=== PATIENT | male | born 1945 | race Caucasian/White ===

== ENCOUNTER 2023-07-10 16:05 | Outpatient (RCR) | payer OTHER, SELFPAY | END 2023-07-13 08:59 | disposition home or self-care (01) | LOC: RPT 16:05 | PROVIDERS: ATTENDING PHYSICIAN Orthopaedic Surgery; FAMILY PHYSICIAN Family Medicine | DX: Z47.1 Aftercare following joint replacement surgery (principal); Z96.642 Presence of left artificial hip joint; Z73.6 Limitation of activities due to disability | CPT/HCPCS: 97110 ==

== ENCOUNTER → 2023-09-08 08:07 | Outpatient (REF) | payer OTHER, SELFPAY | LOC: RCS 08:07 | PROVIDERS: ATTENDING PHYSICIAN Internal Medicine Cardiovascular Disease; FAMILY PHYSICIAN Family Medicine | DX: I48.3 Typical atrial flutter (principal); I48.0 Paroxysmal atrial fibrillation | CPT/HCPCS: 93306 ==

== ENCOUNTER → 2023-09-12 07:49 | Outpatient (REF) | payer OTHER, SELFPAY | LOC: DHCBC/DCA 07:49 | PROVIDERS: ATTENDING PHYSICIAN Internal Medicine Cardiovascular Disease; FAMILY PHYSICIAN Family Medicine | DX: I48.0 Paroxysmal atrial fibrillation (principal); I25.10 Atherosclerotic heart disease of native coronary artery without angina pectoris | CPT/HCPCS: 78452; 93017; A9500; J2785 ==

== ENCOUNTER 2023-11-01 14:51 | Emergency (ER) | payer OTHER, SELFPAY ==
[2023-11-01 14:54] VITALS: BP 121/95; BMI 36.6
--- NOTE | 2023-11-01 16:59 | ED.GENMED ---
History of Present Illness
General
Chief Complaint: Abdominal Pain
Source: patient
Exam Limitations: none
Time Seen by Provider: 11/01/23 16:35
Nursing documentation reviewed up to this point in time: agreed with
Travel History
Have you had any contact with someone who has COVID-19?: No
Do you have any symptoms of coronavirus? Fever > 100 degrees, chills, cough, shortness of breath, sore throat, loss of taste or smell, muscle aches, or headache?: No
History of Present Illness
History of Present Illness:
Patient with history of atrial fibrillation on Eliquis, presents to ED for evaluation after his Apple Watch indicated that he was in atrial fibrillation rhythm, after having large bowel movement. Initially, patient reports having had lower
abdominal discomfort. Shortly afterwards, patient had urge to have bowel movement. He went to the restroom, where he had 'large bowel movement'. Afterwards, his abdominal pain started to dissipate. He checked his BS, as he felt mildly sweaty and
it was 80. Patient proceeded to drink a glass of lemonade, which improved his blood sugar. As he arrived to ED, his Apple Watch indicated that he was back in normal sinus rhythm. At the time of evaluation ED, patient has no complaints. Denies
abdominal pain. Denies dizziness. Denies chest pain. Denies chest palpitations. Denies nausea or vomiting. Denies recent illness.
Past History
Past History
ED Past Medical History: Arrthythmia (Atrial fibrillation), GERD, HTN, [place] and Other (IBS, sleep apnea, arthritis, cataracts)
ED Past Surgical History: Orthopedic and Other (Colostomy with reversal, hernia repair, cataract, cardiac stent)
Social History
Tobacco: Former smoker
Alcohol: None
Drug: None
Review of Systems
Review of Systems
Allergies reviewed?: Yes
All Other Systems: ROS reviewed and negative except as documented in HPI and ROS
Constitutional: Reports no symptoms
EENT: Reports no symptoms
Respiratory: Reports no symptoms
Cardiac: Reports no symptoms
ABD/GI: Reports abdominal pain
Musculoskeletal: Reports no symptoms
Skin: Reports no symptoms
Neurological: Reports no symptoms
Phy Exam
Physical Exam
Physical Exam:
Physical Exam
General: no apparent distress, not acutely ill. afebrile
Head: nc/at. eomi
Neck: supple. normal range of motion.
Heart: s1/s2 regular rate and rhythm, no murmur. equal radial pulses.
Lungs: no acute respiratory distress. clear bilaterally
Abdomen: normal bowel sounds. not tender.
Neuro: alert and oriented. no focal neurological deficits
Skin: no rash
Psychiatric: well kept. interactive and cooperative
Extremities: no edema. no calf tenderness.
Course
Orders/Labs/Results
Orders:
Orders
11/01/23 14:57
EKG [Electrocardiogram (*1)] Urgent
Reason for Study: Chest Pain
EKG- Treatment ONCE
Abnormal Lab Results
11/01/23
19:01
POC Glucose 171 H mg/dl
(70-99)
Vital Signs
Initial and Last Documented VS:
Initial Vital Signs
Temp Pulse Resp BP Pulse Ox
99.1 F 60 20 121/95 99
11/01/23 14:54 11/01/23 14:54 11/01/23 14:54 11/01/23 14:54 11/01/23 14:54
Last Documented Vital Signs
Temp Pulse Resp BP Pulse Ox
99.1 F 60 20 121/95 99
11/01/23 14:54 11/01/23 14:54 11/01/23 14:54 11/01/23 14:54 11/01/23 14:54
MDM/Problems Addressed
MDM/Problems Addressed:
Patient remains asymptomatic during prolonged course of observation ED. Repeat abdominal exam: Soft and nontender. On the monitor, patient remains in sinus rhythm. Patient will be discharged in stable condition, to the care of his family, with
recommendation to notify his piping blocker regarding transient episode of A-fib, spontaneous resolved.
*Critical Care Note
Total Time (30-74mins, 75-104mins- exclusive of procedures): Not Applicable
ED Attending Note
-
Portions of this chart may have been created with voice recognition software.� Occasional wrong word or��sound alike� substitutions may have occurred due to the inherent limitations of voice recognition software.
Discharge Plan
Departure
Patient Disposition: Home (Routine Discharge)
Date of Disposition: 11/01/23
Time of Disposition: 19:01
Patient with high blood pressure during this ER visit?: Yes
Condition: Good
Discharge Problem:
Atrial fibrillation
Instructions: Atrial Fibrillation (DC)
Prescriptions:
No Action
sotalol 80 MG tablet
80 mg PO DAILY
atorvastatin 20 MG tablet
20 mg PO DAILY
metoprolol succinate 25 MG tablet extended release 24 hr
12.5 mg PO DAILY
Patient Comments:
pt takes 1/2 tablet
insulin aspart U-100 [Novolog FlexPen U-100 Insulin] 300 UNITS/3 ML insulin pen
15 units SC .SLIDING SCALE
Metamucil Fiber Singles 1 PACKET powder in packet
1 packet PO DAILY
testosterone cypionate 200 MG/ML oil
200 mg IM MONTHLY
Rx Instructions:
Next dose 04/26/2023
Eliquis 5 mg Tablet
5 mg PO BID
Hold Instructions: Resume on 05/12/23.
insulin detemir U-100 100 unit/mL (3 mL) Insulin Pen
30 unit SC HS
mupirocin 2 % ointment
1 applic intranasal BID Qty: 1 0RF
Patient Comments:
started treatment Sunday05/07/23 and was taking BID and last took at home 05/09/23 in am
docusate sodium 100 mg Capsule
100 mg PO BID Qty: 30 0RF
Eliquis 2.5 mg Tablet
2.5 mg PO BID Qty: 3 0RF
Rx Instructions:
Cut 5 mg tab in 08/07 (= 2.5 mg) and start 10/5 PM. Take twice a day until 10/6 PM.
DO NOT RESUME ELIQUIS 5 MG TWICE A DAY UNTIL 10/7 AM.
lidocaine 4 % Adhesive Patch,Medicated
2 patch topical DAILY Qty: 30 0RF
Rx Instructions:
Over the counter. 12 hours on, 12 hours off.
Apply to sides of left hip/thigh.
pantoprazole 40 mg Tablet,Delayed Release (Dr/Ec)
40 mg PO DAILY Qty: 30 0RF
Rx Instructions:
Take daily while on post-surgical pain meds to prevent GI upset.
oxycodone 5 mg Tablet
5 - 10 mg PO Q4HPRN PRN (Reason: moderate-severe pain) Qty: 30 0RF
Rx Instructions:
1 tab for moderate pain, 2 if severe.
Dx total joint.
sennosides [Senna Laxative] 8.6 mg Tablet
17.2 mg PO BID Qty: 30 0RF
prochlorperazine maleate [Compazine] 5 mg tablet
5 mg PO TID PRN (Reason: nausea and vomiting) Qty: 20 0RF
furosemide 40 MG tablet
40 mg PO Q48H Qty: 0 0RF
Rx Instructions:
HOLD if systolic blood pressure <130 while on Oxycodone
amlodipine 10 MG tablet
10 mg PO DAILY Qty: 0 0RF
Rx Instructions:
HOLD if systolic blood pressure <130 while on Oxycodone
losartan [Cozaar] 100 MG tablet
100 mg PO DAILY Qty: 0 0RF
Rx Instructions:
HOLD if systolic blood pressure <130 while on Oxycodone.
acetaminophen 500 mg Capsule
1,000 mg PO Q6H Qty: 60 0RF
Rx Instructions:
DO NOT exceed >4000 mg daily.
cefadroxil 500 mg capsule
500 mg PO DAILY Qty: 7 0RF
Rx Instructions:
Start day after discharge and continue daily until finished.
Take with probiotic.
tamsulosin [Flomax] 0.4 mg capsule
0.4 mg PO DAILY Qty: 7 0RF
Rx Instructions:
Take daily for 1 week for urinary retention prevention.
HOLD if systolic blood pressure <100.
Referrals:
Frankie Caldwell MD [Family Provider] -
Activity Restrictions/Additional Instructions:
As discussed, please follow-up with your primary care physician and/or piping blocker with any further concerns.
Interventions
Interventions:
*Risk Screen - Suicide Last Done: 11/01/23 14:54
*Neglect/Abuse Screening Last Done: 11/01/23 14:54
ED- Fall Risk Assessment Last Done: 11/01/23 18:06
*ED COVID-19 Vaccine History Last Done: 11/01/23 14:54
*Nursing Disposition Last Done: 11/01/23 19:17
BJ-Dwomri-Tzotvhulee Assessment Last Done: 11/01/23 18:06
Discharge Date and Time
Discharge Date/Time: 11/01/23 19:18
Print Language: CUBAN
[2023-11-01 19:03] LABS: Glucose - Point of Care 171 mg/dl (70-99)
== END 2023-11-01 19:18 | disposition home or self-care (01) ==
LOC: EMR 14:51
PROVIDERS: EMERGENCY PHYSICIAN Emergency Medicine; FAMILY PHYSICIAN Family Medicine
DX: I48.91 Unspecified atrial fibrillation (principal); I10 Essential (primary) hypertension; Z79.01 Long term (current) use of anticoagulants; Z87.891 Personal history of nicotine dependence
CPT/HCPCS: 99283; 82962; 93005

== ENCOUNTER 2023-11-07 15:15 | Inpatient (IN) | payer OTHER, SELFPAY ==
[2023-11-07] VITALS (17 sets, daily range): BP systolic 106–141; BP diastolic 52–95; BMI 34.8
[2023-11-07 05:50] LABS: % Basophils 0.2 % (0-2); % Eosinophils 0.1 % (0-6); % Immature Granulocytes 0.6 % (0-0.5); % Lymphocytes 5.2 % (20.5-51.1); % Monocytes 10.9 % (1.7-9.3); Absolute Immature Granulocytes 0.1 10^3/uL (0-0.05); Absolute Lymphocytes 1.1 10^3/uL (1.2-3.4); Absolute Monocytes 2.3 10^3/uL (0.1-0.6); Absolute Neutrophils 17.7 10^3/uL (1.4-6.5); Hematocrit 40.8 % (39.0-52.0); Hemoglobin 14.5 g/dL (13.0-18.0); Mean Corp Hgb Conc. 35.5 g/dL (33.0-37.0); Mean Corpuscular Volume 101.2 fL (80.0-94.0); Mean Platelet Volume 9.8 fL (7.4-10.4); Nucleated Red Blood Cells % 0 % (-); Platelet Count 255 10^3/uL (130-400); Red Blood Cell Count 4.03 10^6/uL (4.70-6.10); Red Cell Dist. Width 12.2 % (11.5-14.5); White Blood Cell Count 21.3 10^3/uL (4.8-10.8)
[2023-11-07 06:04] LABS: ALT (SGPT) 327 U/L (0-50); AST (SGOT) 133 U/L (17-59); Albumin 3.8 g/dl (3.5-5.0); Alkaline Phosphatase 354 U/L (38-126); Blood Urea Nitrogen 27 mg/dl (9-20); Calcium 9.5 mg/dl (8.4-10.2); Carbon Dioxide 15 mmol/L (22-30); Chloride 108 mmol/L (98-107); Estimated Creatinine Clearance 54 ml/min; Glucose 204 mg/dl (70-99); Potassium 3.7 mmol/L (3.5-5.1); Sodium 135 mmol/L (135-145); Total Bilirubin 2.2 mg/dl (0.2-1.3); Total Protein 7.2 g/dl (6.3-8.2); eGFR 51.45
--- NOTE | 2023-11-07 06:12 | ED.GENMED ---
History of Present Illness
General
Chief Complaint: Abdominal Symptoms
Source: patient
Exam Limitations: none
Time Seen by Provider: 11/07/23 06:02
Travel History
Have you had any contact with someone who has COVID-19?: No
Do you have any symptoms of coronavirus? Fever > 100 degrees, chills, cough, shortness of breath, sore throat, loss of taste or smell, muscle aches, or headache?: No
History of Present Illness
History of Present Illness:
See MDM
Past History
Past History
ED Past Medical History: Arrthythmia (Atrial fibrillation), GERD, HTN, [place] and Other (IBS, sleep apnea, arthritis, cataracts)
ED Past Surgical History: Orthopedic and Other (Colostomy with reversal, hernia repair, cataract, cardiac stent)
Social History
Tobacco: Former smoker
Alcohol: None
Drug: None
Phy Exam
Physical Exam
Physical Exam:
See MDM
Course
Orders/Labs/Results
Orders:
Orders
11/07/23 05:27
Electrocardiogram (*1) Urgent
Reason for Study: Atrial Fibrillation
EKG- Treatment ONCE
11/07/23 05:42
CMP [Comprehensive Metabolic Panel] Urgent
Complete Blood Count/With Diff Urgent
Lipase Urgent
Comment: ADD ON
11/07/23 06:10
Add On- LAB Urgent
Tests Added?: lipase
11/07/23 06:11
CT Abd/pel W Iv And Oral Contr Urgent
Comment:
Reason For Exam: mid abd pain
Iohexol [Omnipaque] See Protocol PO NOW STA
Morphine Sulfate 4 mg IV NOW STA
Ondansetron Injectable [Zofran] 4 mg IV NOW STA
11/07/23 10:17
Morphine Sulfate 4 mg IV NOW STA
11/07/23 11:14
0.9% Sodium Chloride 1000 ml [Nss] 1,000 ml IV BOLUS
Abnormal Lab Results
11/07/23
05:42
WBC 21.3 H 10^3/uL
(4.8-10.8)
RBC 4.03 L 10^6/uL
(4.70-6.10)
MCV 101.2 H fL
(80.0-94.0)
MCH 36.0 H pg
(27.0-31.0)
Abs Immat Gran (auto) 0.1 H 10^3/uL
(0-0.05)
Absolute Neuts (auto) 17.7 H 10^3/uL
(1.4-6.5)
Absolute Lymphs (auto) 1.1 L 10^3/uL
(1.2-3.4)
Absolute Monos (auto) 2.3 H 10^3/uL
(0.1-0.6)
Immature Gran % 0.6 H %
(0-0.5)
Neutrophils % 83.0 H %
(42.2-75.2)
Lymphocytes % 5.2 L %
(20.5-51.1)
Monocytes % 10.9 H %
(1.7-9.3)
Chloride 108 H mmol/L
(98-107)
Carbon Dioxide 15 L mmol/L
(22-30)
BUN 27 H mg/dl
(9-20)
Creatinine 1.4 H mg/dL
(0.7-1.3)
Glucose 204 H mg/dl
(70-99)
Total Bilirubin 2.2 H mg/dl
(0.2-1.3)
AST 133 H U/L
(17-59)
ALT 327 H U/L
(0-50)
Alkaline Phosphatase 354 H U/L
(38-126)
Lipase > 4000 H* U/L
(23-300)
11/07/23 05:42
11/07/23 05:42
Vital Signs
Initial and Last Documented VS:
Initial Vital Signs
Temp Pulse Resp BP Pulse Ox
98 F 134 26 118/52 98
11/07/23 05:17 11/07/23 05:17 11/07/23 05:17 11/07/23 05:17 11/07/23 05:17
Last Documented Vital Signs
Temp Pulse Resp BP Pulse Ox
98 F 128 18 141/70 94
11/07/23 05:17 11/07/23 12:30 11/07/23 12:30 11/07/23 12:13 11/07/23 12:30
MDM/Problems Addressed
Differential Diagnosis Includes:
HPI and MDM Narrative:
78-year-old male presenting with generalized abdominal pain and diarrhea. Symptoms have been ongoing since . Since then, patient has been in and out of A-fib/a flutter. Symptoms are worse when he eats but tend to be generalized
regardless. Patient is worried because he has a history of bowel perforation. He denies sick contacts or fevers.
On exam, he does have what appears to be a distended abdomen but states this is somewhat normal for him. On the cafeteria monitor, he appears to be going in between A-fib and normal sinus rhythm. He was initially complaining of shortness of breath
but states that has been resolving.
Given his history, will obtain CT scan of his abdomen/pelvis
Physical exam
General: Laying in bed comfortably
HEENT: protecting airway
Neck: appears supple
CV: No evidence of cyanosis. Irregular rhythm, regular rate
Resp: No accessory muscle use
Abd: Appears distended. Mild tenderness throughout. No rebound
Extremities: No deformities. No leg edema
Neuro: alert
Psych: Normal affect
Skin: Intact
Problems Addressed including Acute and Chronic Conditions affecting care:
1. Paroxysmal A-fib
Acuity: acute
Prognosis: stable
Details: We discussed that he is a poor candidate for cardioversion given that he continues to go in and out.
2. Abdominal pain
Acuity: acute
Prognosis: stable
Details: Given his exam and history, will obtain CT abdomen/pelvis
Updates
7:30 AM I updated patient on elevated LFTs and elevated lipase. He states he is feeling better after the morphine. CT scan still pending
11:[address] shows gallstones but no evidence of acute cholecystitis. CT shows evidence of pancreatitis. Will continue IV fluids and admit
Differential Diagnosis (but not limited to): Colitis, cholecystitis, diverticulitis
Testing considered: Chest x-ray but shortness of breath is resolving
Drug therapy (if applicable): OTC meds, please see d/c instruction regarding Rx drugs
Amount and/or Complexity of Data Reviewed
Clinical info obtained from: Patient
External data reviewed: N/A
Labs I independently reviewed (but not limited to): Leukocytosis, elevated lipase
Radiology: The CT scan was personally and independently reviewed. In addition, official CT report reviewed.
Pulse Ox: not hypoxic
EKG independently reviewed: A flutter, normal axis, no STEMI
Baby Attendant: Intermittently going between A-fib and normal sinus rhythm
Critical Care: N/A
Risk of Complication:
Social Determinants of health: Good social support
Discussed with other providers: Hospitalist
Escalation of Care includes Admit/Obs: Given the pain and pancreatitis, will admit
Occasional wrong word or 'sound a like' substitutions may have occurred due to the inherent limitations of voice recognition software. Read the chart carefully and recognize, using context, where substitutions have occurred.
*Critical Care Note
Total Time (30-74mins, 75-104mins- exclusive of procedures): Not Applicable
ED Attending Note
-
Portions of this chart may have been created with voice recognition software.� Occasional wrong word or��sound alike� substitutions may have occurred due to the inherent limitations of voice recognition software.
Discharge Plan
Departure
Patient Disposition: Admit
Date of Disposition: 11/07/23
Time of Disposition: 11:17
Admit to: Med/Surg
Presentation/result/management discussed w/ accepting MD/DO: Hospitalist
Discharge Problem:
Acute pancreatitis
Prescriptions:
No Action
sotalol 80 MG tablet
80 mg PO QPM
atorvastatin 20 MG tablet
20 mg PO DAILY
metoprolol succinate 25 MG tablet extended release 24 hr
12.5 mg PO DAILY
Patient Comments:
pt takes 1/2 tablet
insulin aspart U-100 [Novolog FlexPen U-100 Insulin] 300 UNITS/3 ML insulin pen
12 - 16 units SC AC
Metamucil Fiber Singles 1 PACKET powder in packet
1 packet PO DAILY
amlodipine 10 MG tablet
10 mg PO DAILY Qty: 0 0RF
losartan [Cozaar] 100 MG tablet
100 mg PO DAILY Qty: 0 0RF
[place] Nasal Mist 0.65 % Aerosol,[place]
1 spray INTRANASAL HS
insulin glargine [Lantus Solostar U-100 Insulin] 100 unit/mL (3 mL) insulin pen
38 - 43 unit SC HS
Eliquis 5 mg tablet
5 mg PO BID
furosemide 40 MG tablet
40 mg PO DAILY
acetaminophen 500 mg capsule
1,000 mg PO HS
Rx Instructions:
DO NOT exceed >4000 mg daily.
docusate sodium 100 mg capsule
100 mg PO BID
Referrals:
Frankie Caldwell MD [Family Provider] -
Interventions
Interventions:
*Risk Screen - Suicide Last Done: 11/07/23 05:17
*General Assessment Last Done: 11/07/23 05:47
*Neglect/Abuse Screening Last Done: 11/07/23 05:17
ED- Fall Risk Assessment Last Done: 11/07/23 06:00
*ED COVID-19 Vaccine History Last Done: 11/07/23 05:40
YL-Dddyel-Sjhvquljml Assessment Last Done: 11/07/23 06:00
Discharge Date and Time
Print Language: CITIZEN OF [place]
[2023-11-07] MEDS: MORPHINE SULFATE 4 MG IV ×2 (07:14→10:39)
[2023-11-07] MEDS: ZOFRAN 4 MG IV (07:16)
[2023-11-07] MEDS: OMNIPAQUE 50 ML PO (07:17)
[2023-11-07 07:32] LABS: Lipase > 4000 U/L (23-300)
[2023-11-07] MEDS: NSS 1000 IV ×2 (11:20→15:55)
--- NOTE | 2023-11-07 15:20 | W.PN.HOSP.TC ---
Addendum entered and electronically signed by Zack Marcos MD 11/07/23 15:40:
will order short course of abx until eval by GI
Original Note:
Today's Communication/Plan
-
IVF
narcotic analgesic
Discussed with Dr. Sandhu, for now she prefers no abx
Assessment / Plan
Assessment / Plan
acute pancreatitis
onset of symptoms 10/31, pain was sharp at that time, had large BM and pain resolved. Recurred on 11/04. Had poor appetite on 11/01 and 11/02, but ate more for Easter on 11/03. this time pain did not resolve, but was variable in intensity.
Lipase >4000. ?biliary colic vs Etoh related
IDDM
pt will be on clear liquid only, thus will decrease Lantus dosing and use SSI coverage. Check a1c
Paroxysmal A. Fib
continue Eliquis for now
Etoh
pt drinks 1-2 nayeli's per day ~3x per week
P:IVF
GI consult
clear liquids only
see dictated note
Full Code
Anticipated Discharge: > 48 hours
Subjective/Interval History
-
Date of Service: November 07, 2023
Abdominal Pain, onset 10/31
Objective Data
-
Labs:
Laboratory Results
11/07/23
05:42
WBC 21.3 H
Hgb 14.5
Hct 40.8
Plt Count 255
Sodium 135
Potassium 3.7
Chloride 108 H
Carbon Dioxide 15 L
BUN 27 H
Creatinine 1.4 H
Glucose 204 H
Calcium 9.5
Total Bilirubin 2.2 H
AST 133 H
ALT 327 H
Alkaline Phosphatase 354 H
Vital Signs:
Vital Signs
Temp Pulse Resp BP Pulse Ox
98 F 112 31 126/63 95
11/07/23 05:17 11/07/23 14:30 11/07/23 14:30 11/07/23 14:00 11/07/23 14:30
Review of Systems
-
History Source: Patient and Family ( and dgt)
Constitutional: Denies Fever
EENT: Reports No Symptoms Reported
Respiratory: Reports No Symptoms and Trouble Breathing (was sob day of onset, none currently)
Cardiac: Reports No Symptoms; Denies Chest Pain
Abdomen/GI: Reports Abdominal Pain
Genitourinary: Reports No Symptoms
Physical Exam
-
General: Well Developed, Well Nourished, No Apparent Distress and Obese
HEENT: Normocephalic, Atraumatic and Moist Mucous Membranes
Respiratory: Clear to Auscultation (on shallow respirations); Negative Wheezes, Rales or Rhonchi
Cardiac: S1/S2 and Irregular Rhythm
GI: Soft, Normal Bowel Sounds, Tender and Distended
Musculoskeletal: No Clubbing, No Cyanosis and Other (bilateral chronic stasis changes)
Neuro: Awake, Alert and Oriented
[2023-11-07] MEDS: MORPHINE SULFATE 2 MG IV (15:50)
--- NOTE | 2023-11-07 15:51 | CON.GI ---
Addendum entered and electronically signed by Eleuterio Sandhu MD 11/07/23 18:23:
I saw and examined the patient.
The E M ASSEMBLER or PA's note was reviewed and I agree with the note.
Comment:78-year-old male past medical history of A-fib on Eliquis, ulcerative colitis with resection currently off medications, other medical history as below here with abdominal pain found to have leukocytosis, elevated lipase, elevated LFTs. CT
significant for pancreatitis and gallstones. Does drink double nayeli 2-3 times a week. Typically does not have abdominal pain. Suspect gallstone pancreatitis. Less likely due to alcohol based on LFT ratio as ALT is greater than AST. With T.
bili elevated, will get MRI/MRCP for CBD stone. Recommend n.p.o., IV fluids. Does have leukocytosis but this may be related to pancreatitis rather than infection. Will hold on antibiotics. Consider cardiology consult and surgical eval in the
morning for potential cholecystectomy either on this admission or outpatient given likely gallstone pancreatitis. Discussed with Dr. Marcos.
Original Note:
Consultation
-
Date/Time Consultation Requested: 11/07/23 1522
Date/Time Consultation Performed: 11/07/23 1450
Requesting Provider: Zack Marcos MD
Performing Provider: TARAS Del Toro, Raquel Sandhu MD
Reason for Consultation: pancreatitis
Medical History
Chief Complaint / HPI
Chief Complaint: abdominal pain
History of Present Illness:
Pt is a 78yo with hx afib on Elquis, ulcerative colitis with distant hx Asacol use then bowel perforation with resection currently off medications, TA polyps, GERD, obesity, HTN, hypercholesterolemia, NIDDM with admission to ER 10/31 with abdominal
pain and elevated heart rate. In ER symptoms improved and patient was discharged. During evaluation WBC was normal, creat 1.4, alk phos 153 with otherwise normal LFT's. Pt now returns with recurrent pain still presents when seen in ER with rise
in WBC to 21,300, with hbg 14.5 with macrocytosis, bili 2.2, d tony 1.6, AST 133, alt 327, alk phos 354 and lipase >4000. CT with IV and oral contrast with inflammatory stranding in head and neck of pancreas with concern for pancreatitis, there is
also mild bowel wall thickening in adjacent distended duodenum, cholelithasis, renal atrophy, diastasis of abdominal wall with large abdominal wall pannus and b/l THR.
At this time patient admits to recent nausea and vomiting prior to admission and some dark stools. He admits to some chronic constipation. He otherwise denies wt loss, fever, chills, jaundice, diarrhea or rectal bleeding. + ETOH 2-3 double
nayeli weekly, no new medications, no hx prior pancreatitis.
Past Medical History
Past Medical History: Arrhythmias (afib on Eliquis), GERD, HTN, Hypercholesterolemia, NIDDM and Other (ulcerative colitis, metabolic acidosis with metformin use, LE edema, sleep apnea, obesity, cataracts)
Past Surgical History: Bowel Resection (bowel perforation-with sigmoid resection colostomy with reversal path with active chronic non specific colitis, hernia repair, cataracts ), Cardiac (stent) and Orthopedic (b/l THR)
Social History
Tobacco: Former Smoker
Alcohol: Occasional (1 double nayeli 2-3 times per week)
Drug: None
Personal:
Living: With Family
Family History
Family History: Other (no family hx GI cancer, pancreatitis issues )
Allergies / Home Medications
Allergy/AdvReac Type Severity Reaction Status Date / Time
metformin Allergy Unknown Verified 11/07/23 05:22
rosiglitazone maleate Allergy Unknown Verified 11/07/23 05:22
[From Avandia]
ezetimibe [From Zetia] AdvReac MYALGIAS Verified 11/07/23 05:22
lisinopril [Lisinopril] AdvReac COUGH Verified 11/07/23 05:22
simvastatin [From Zocor] AdvReac MYALGIAS Verified 11/07/23 05:22
�Medication �Instructions �Recorded
sotalol 80 mg tablet 80 mg PO QPM Arrhythmia 07/14/09
atorvastatin 20 mg tablet 20 mg PO DAILY High Cholesterol 01/10/17
insulin aspart U-100 100 unit/mL 12 - 16 units SC AC Diabetes 01/10/17
(3 mL) subcutaneous pen (Novolog
FlexPen U-100 Insulin aspart)
metoprolol succinate 25 mg 12.5 mg PO DAILY Blood Pressure 01/10/17
tablet,extended release 24 hr
psyllium husk (aspartame) 3.4 gram 1 packet PO DAILY Constipation 01/10/17
oral powder packet (Metamucil
Fiber Singles)
amlodipine 10 mg tablet 10 mg PO DAILY Blood Pressure #0 05/10/23
tabs
losartan 100 mg tablet (Cozaar) 100 mg PO DAILY Blood Pressure #0 05/10/23
tabs
acetaminophen 500 mg capsule 1,000 mg PO HS Pain 11/07/23
apixaban 5 mg tablet (Eliquis) 5 mg PO BID Blood Clot 11/07/23
Prevention/Tx
docusate sodium 100 mg capsule 100 mg PO BID Constipation 11/07/23
furosemide 40 mg tablet 40 mg PO DAILY Fluid 11/07/23
Retention/Swelling
insulin glargine 100 unit/mL (3 38 - 43 unit SC HS Diabetes 11/07/23
mL) subcutaneous pen (Lantus
Solostar U-100 Insulin)
sodium chloride 0.65 % nasal spray 1 spray intranasal HS dryness 11/07/23
aerosol
Review of Systems
-
History Source: Patient and Family
Constitutional: Reports No Symptoms
EENT: Reports No Symptoms
Respiratory: Reports No Symptoms
Cardiac: Reports Palpitations
Abdomen/GI: Reports Abdominal Pain, Nausea, Vomiting and Constipated
: Reports No Symptoms
Musculoskeletal: Reports No Symptoms
Skin: Reports No Symptoms
Neurological: Reports Weakness
Endocrine: Reports No Symptoms
Hematologic/Lymphatic: Reports No Symptoms
Vital Signs
Temp Pulse Resp BP Pulse Ox
98 F 112 31 126/63 95
11/07/23 05:17 11/07/23 14:30 11/07/23 14:30 11/07/23 14:00 11/07/23 14:30
Physical Exam
Exam
General: Other (elderly male with some distress with pain in exam)
HEENT: Normocephalic and Anicteric
Respiratory: Other (decreased )
Cardiac: Irregular Rhythm (tachy)
GI: Soft, Tender (diffuse worse right sided, large abdomen ) and Other (diastasis )
Musculoskeletal: No Clubbing and No Cyanosis
Skin: Warm and Dry
Neuro: Awake, Alert and AO x 3
Psych: Calm
Results
WBC 21.3 10^3/uL (4.8-10.8) H 11/07/23 05:42
Hgb 14.5 g/dL (13.0-18.0) 11/07/23 05:42
Hct 40.8 % (39.0-52.0) 11/07/23 05:42
MCV 101.2 fL (80.0-94.0) H 11/07/23 05:42
Plt Count 255 10^3/uL (130-400) 11/07/23 05:42
Absolute Neuts (auto) 17.7 10^3/uL (1.4-6.5) H 11/07/23 05:42
Sodium 135 mmol/L (135-145) 11/07/23 05:42
Potassium 3.7 mmol/L (3.5-5.1) 11/07/23 05:42
Chloride 108 mmol/L (98-107) H 11/07/23 05:42
Carbon Dioxide 15 mmol/L (22-30) L 11/07/23 05:42
BUN 27 mg/dl (9-20) H 11/07/23 05:42
Creatinine 1.4 mg/dL (0.7-1.3) H 11/07/23 05:42
Calcium 9.5 mg/dl (8.4-10.2) 11/07/23 05:42
Total Bilirubin 2.2 mg/dl (0.2-1.3) H 11/07/23 05:42
AST 133 U/L (17-59) H 11/07/23 05:42
ALT 327 U/L (0-50) H 11/07/23 05:42
Alkaline Phosphatase 354 U/L (38-126) H 11/07/23 05:42
Lipase > 4000 U/L (23-300) H* 11/07/23 05:42
Diagnostic Image Results:
11/07/23 CT Abd/pel W Iv And Oral Contr
1).There is mild groundglass inflammatory stranding at the head and neck of the pancreas suggesting pancreatitis
2). There is mild bowel wall thickening in the adjacent distended third portion of the duodenum likely reflecting contiguous inflammatory change.
3). There is cholelithiasis
4). There is mild bilateral renal cortical atrophy
5).There is diastases of the anterior abdominal wall musculature with large anterior abdominal wall pannus
6). There are bilateral hip replacements
Prior GI Procedures:
EGD: none
Colonoscopy: 2019 -8 mm polyp TC random bx-- + cologuard, hx UC with surgical resection bx adenomatous changes of polyp, quiescent colitis neg dysplasia
Assessment / Plan
-
Pt is a 78yo with hx afib on Eliquis, ulcerative colitis with distant hx Asacol use then bowel perforation with resection currently off medications, TA polyps, GERD, obesity, HTN, hypercholesterolemia, NIDDM with admission to ER 10/31 with abdominal
pain and elevated heart rate. In ER symptoms improved and patient was discharged. During evaluation WBC was normal, creat 1.4, alk phos 153 with otherwise normal LFT's. Pt now returns with recurrent pain still presents when seen in ER with rise
in WBC to 21,300, with hbg 14.5 with macrocytosis, bili 2.2, d tony 1.6, AST 133, alt 327, alk phos 354 and lipase >4000. CT with IV and oral contrast with inflammatory stranding in head and neck of pancreas with concern for pancreatitis, there is
also mild bowel wall thickening in adjacent distended duodenum, cholelithiasis, renal atrophy, diastasis of abdominal wall with large abdominal wall pannus and b/l THR.
-pancreatitis
-leukocytosis
-PAF on Eliquis
-ETOH use
-macrocytosis
-cholelithiasis
-hx ulcerative colitis with prior sigmoid resection 1993 resection
-constipation
other medical problems:
-IDDM
-TA polyps
-GERD
-CKD
PLAN:
etiology of symptoms with concern for pancreatitis related to gallstone pancreatitis, ETOH use vs other
plan for MRI/MRCP to eval for CBD stone
pain control
trend LFT's
NPO
aggressive IVF as tolerated -s/p 1 liter bolus in ER will change in LR at 150ml//hr
add baseline CRP
t/c cardiology and surgical eval in Am for viola
ETOH abstinence
-
-
Thank you for consultation and allowing me to participate in the patient's care. Please call the stream control officer GI physician during the after hours with any questions or concerns.
[2023-11-07] MEDS: PROTONIX IV 40 MG IV (15:58)
[2023-11-07] MEDS: NSS (PRESERVATIVE FREE) 10 ML IV (15:58)
[2023-11-07 15:59] LABS: Direct Bilirubin 1.6 mg/dl (0.0-0.4)
[2023-11-07] MEDS: ZOSYN 50 IV (16:03)
[2023-11-07 16:33] LABS: Glucose - Point of Care 188 mg/dl (70-99)
[2023-11-07] MEDS: NOVOLOG FLEXPEN-MODERATE RESISTANCE 1 UNITS SC (16:34)
[2023-11-07] MEDS: LR 1000 IV ×2 (16:38→22:55)
[2023-11-07] MEDS: BETAPACE 80 MG PO (18:19)
--- NOTE | 2023-11-07 18:23 | W.PN.UPDATE ---
Update Note
Progress Note Update
billing purposes
[2023-11-07 18:26] LABS: Urine Albumin 1+ (Neg - Trace); Urine Bilirubin 1+ (Negative); Urine Character Clear (Clear); Urine Color Yellow; Urine Glucose 1+ (Negative); Urine Ketone 1+ (Negative); Urine Leukocyte Negative (Negative); Urine Nitrite Negative (Negative); Urine Occult Blood 1+ (Negative); Urine Specific Gravity 1.015 (<1.030); Urine Urobilinogen Negative (Neg - 1+)
[2023-11-07 18:35] LABS: Urine Squamous Cell 0-2 /LPF (Few)
[2023-11-07 18:36] LABS: Urine Bacteria Many (Negative); Urine Red Blood Cell 0-2 /HPF (0-2); Urine White Cell 0-2 /HPF (0-5)
[2023-11-08] MEDS: LANTUS 0.200000000000000011 UNITS SC ×2 (00:36→22:00)
[2023-11-08] MEDS: ZOSYN 50 IV ×4 (00:42→18:58)
[2023-11-08 00:43] LABS: Glucose - Point of Care 228 mg/dl (70-99)
[2023-11-08] MEDS: OCEAN, SALINE MIST 50 SPRAYS NASAL (00:43)
[2023-11-08] MEDS: COLACE 100 MG PO ×3 (00:43→19:30)
[2023-11-08] MEDS: ELIQUIS 5 MG PO ×3 (00:43→19:30)
[2023-11-08] MEDS: MORPHINE SULFATE 2 MG IV ×3 (00:51→18:56)
[2023-11-08 06:46] LABS: Hematocrit 34.8 % (39.0-52.0); Hemoglobin 12.5 g/dL (13.0-18.0); Mean Corp Hgb Conc. 35.9 g/dL (33.0-37.0); Mean Corpuscular Hgb 36.5 pg (27.0-31.0); Mean Corpuscular Volume 101.8 fL (80.0-94.0); Mean Platelet Volume 10.1 fL (7.4-10.4); Platelet Count 202 10^3/uL (130-400); Red Blood Cell Count 3.42 10^6/uL (4.70-6.10); Red Cell Dist. Width 12.5 % (11.5-14.5); White Blood Cell Count 17.6 10^3/uL (4.8-10.8)
[2023-11-08 07:18] LABS: ALT (SGPT) 197 U/L (0-50); AST (SGOT) 59 U/L (17-59); Albumin 2.9 g/dl (3.5-5.0); Alkaline Phosphatase 215 U/L (38-126); Blood Urea Nitrogen 34 mg/dl (9-20); Carbon Dioxide 15 mmol/L (22-30); Chloride 107 mmol/L (98-107); Estimated Creatinine Clearance 44 ml/min; Glucose 207 mg/dl (70-99); Lipase 895 U/L (23-300); Sodium 131 mmol/L (135-145); Total Bilirubin 1.7 mg/dl (0.2-1.3); eGFR 40.75
[2023-11-08 08:24] LABS: Glucose - Point of Care 198 mg/dl (70-99)
--- NOTE | 2023-11-08 08:39 | W.PN.HOSP.TC ---
Today's Communication/Plan
-
MRI/MRCP
resume IVF
follow labs
reviewed with RN
Assessment / Plan
Assessment / Plan
acute pancreatitis
onset of symptoms 10/31, pain was sharp at that time, had large BM and pain resolved. Recurred on 11/04. Had poor appetite on 11/01 and 11/02, but ate more for Easter on 11/03. this time pain did not resolve, but was variable in intensity.
Lipase >4000. ?biliary colic vs Etoh related, MRI ordered, pending
Spoke to GI regarding abx, originally was not going to order, but with significant leukocytosis decided to order pending further work up of source of pancreatitis
WBC 21.3-->17.6
Lipase 4000-->895
AST 133-->59
ALT 327-->197
Laboratory findings are more consistent with CBD stone (potentially passed) than Etoh induced pancreatitis, await results of MRI
IDDM
pt will be on clear liquid only, thus will decrease Lantus dosing and use SSI coverage. Check a1c
glu 188-228. Continue on reduced dose insulin to avoid hypoglycemia with decreased oral intake
Rising BUN/Creat
27/1.4-->34/1.7
Will resume IVF
Paroxysmal A. Fib
continue Eliquis for now
Etoh
pt drinks 1-2 nayeli's per day ~3x per week
P:IVF (nursing reports had been stopped, after the bolus and then second liter which was LR, will resume and follow renal studies)
GI consult
clear liquids only
see dictated note
Full Code
Anticipated Discharge: > 48 hours
Subjective/Interval History
-
Date of Service: November 08, 2023
Pain has decreased somewhat, not fully resolved. Had BM yesterday, none yet today. Only passing limited amount of flatus
Objective Data
-
Labs:
Laboratory Results
11/08/23
06:16
WBC 17.6 H
Hgb 12.5 L
Hct 34.8 L
Plt Count 202 D
Sodium 131 L
Potassium 4.0
Chloride 107
Carbon Dioxide 15 L
BUN 34 H
Creatinine 1.7 H
Glucose 207 H
Calcium 9.0
Total Bilirubin 1.7 H
AST 59
ALT 197 H
Alkaline Phosphatase 215 H
Vital Signs:
Vital Signs
Temp Pulse Resp BP Pulse Ox
98 F 97 31 106/57 94
11/07/23 05:17 11/07/23 22:30 11/07/23 22:30 11/07/23 22:00 11/07/23 22:30
Review of Systems
-
History Source: Patient and Coordinated Provider
Constitutional: Denies Fever
EENT: Reports No Symptoms Reported
Respiratory: Reports No Symptoms and Trouble Breathing (was sob day of onset, none currently)
Cardiac: Reports No Symptoms; Denies Chest Pain
Abdomen/GI: Reports Abdominal Pain (has decreased)
Genitourinary: Reports No Symptoms
Skin: Reports Rash (chronic stasis dermatitis of LE)
Physical Exam
-
General: Well Developed, Well Nourished, No Apparent Distress and Obese
HEENT: Normocephalic, Atraumatic and Moist Mucous Membranes
Respiratory: Clear to Auscultation (on shallow respirations); Negative Wheezes, Rales or Rhonchi
Cardiac: S1/S2 and Irregular Rhythm
GI: Soft, Normal Bowel Sounds, Tender (has decreased) and Distended (has decreased)
Musculoskeletal: No Clubbing, No Cyanosis and Other (bilateral chronic stasis changes)
Neuro: Awake, Alert and Oriented
[2023-11-08] MEDS: LR 1000 IV ×3 (09:14→18:57)
[2023-11-08] MEDS: LR IV (09:21)
[2023-11-08 09:47] VITALS: BP 113/55
[2023-11-08] MEDS: COZAAR 100 MG PO (09:47)
[2023-11-08] MEDS: NOVOLOG FLEXPEN-MODERATE RESISTANCE 300 UNITS SC (09:53)
[2023-11-08] MEDS: NORVASC 10 MG PO (09:53)
[2023-11-08] MEDS: PROTONIX IV 40 MG IV (09:58)
[2023-11-08] MEDS: NSS (PRESERVATIVE FREE) 10 ML IV (09:58)
[2023-11-08] MEDS: TOPROL XL 12.5 MG PO (09:59)
[2023-11-08 13:26] LABS: Glucose - Point of Care 250 mg/dl (70-99)
[2023-11-08] MEDS: NOVOLOG FLEXPEN-MODERATE RESISTANCE 5 UNITS SC (13:36)
[2023-11-08 14:28] VITALS: BP 100/58
[2023-11-08 14:44] VITALS: BMI 34.9
[2023-11-08 15:00] VITALS: BP 116/58
--- NOTE | 2023-11-08 15:43 | W.PN.GI.CBS2 ---
Today's Communication / Plan
-
mri, ivf, pain control, surg cs in am
Assessment / Plan
-
Pt is a 78yo with hx afib on Eliquis, ulcerative colitis with distant hx Asacol use then bowel perforation with resection currently off medications, TA polyps, GERD, obesity, HTN, hypercholesterolemia, NIDDM with admission to ER 10/31 with abdominal
pain and elevated heart rate. In ER symptoms improved and patient was discharged. During evaluation WBC was normal, creat 1.4, alk phos 153 with otherwise normal LFT's. Pt now returns with recurrent pain still presents when seen in ER with rise
in WBC to 21,300, with hbg 14.5 with macrocytosis, bili 2.2, d tony 1.6, AST 133, alt 327, alk phos 354 and lipase >4000. CT with IV and oral contrast with inflammatory stranding in head and neck of pancreas with concern for pancreatitis, there is
also mild bowel wall thickening in adjacent distended duodenum, cholelithiasis, renal atrophy, diastasis of abdominal wall with large abdominal wall pannus and b/l THR.
-pancreatitis
-leukocytosis
-PAF on Eliquis
-ETOH use
-macrocytosis
-cholelithiasis
-hx ulcerative colitis with prior sigmoid resection 1993 resection
-constipation
other medical problems:
-IDDM
-TA polyps
-GERD
-CKD
PLAN:
etiology of symptoms with concern for pancreatitis related to gallstone pancreatitis, ETOH use vs other - suspect based on LFT pattern gallstone
plan for MRI/MRCP to eval for CBD stone - I called MRI they will do MRI today
pain control
trend LFT's, CBC - labs improving
Primary team placed on clear liquid diet monitor
IVF, monitor I+O
add baseline CRP
I consulted gen surg will see tomorrow
ETOH abstinence
Subjective
Subjective
Date of Service: November 08, 2023
Pain better still present still needing pain meds
Primary team placed him on clear liquids
Objective
Data Reviewed
Laboratory Data:
Laboratory Results
11/08/23 06:16
Laboratory Results
Total Bilirubin 1.7 mg/dl (0.2-1.3) H 11/08/23 06:16
AST 59 U/L (17-59) 11/08/23 06:16
ALT 197 U/L (0-50) H 11/08/23 06:16
Alkaline Phosphatase 215 U/L (38-126) H 11/08/23 06:16
Lipase 895 U/L (23-300) H 11/08/23 06:16
Vital Signs and I&O:
Vital Signs
Temp Pulse Resp BP Pulse Ox
98.5 F 79 20 116/58 97
11/08/23 15:00 11/08/23 15:00 11/08/23 15:00 11/08/23 15:00 11/08/23 15:00
I&O
11/07/23 11/08/23 11/09/23
06:59 06:59 06:59
Intake Total 1810 / 1810
Output Total 200 / 200
Balance 1610 / 1610
Physical Exam
Physical Exam
GI: Non Distended and Non Tender
[2023-11-08 15:52] VITALS: BMI 34.9
[2023-11-08 16:14] LABS: ALT (SGPT) 168 U/L (0-50); AST (SGOT) 49 U/L (17-59); Albumin 3.1 g/dl (3.5-5.0); Alkaline Phosphatase 201 U/L (38-126); Blood Urea Nitrogen 39 mg/dl (9-20); Calcium 9.3 mg/dl (8.4-10.2); Carbon Dioxide 17 mmol/L (22-30); Chloride 101 mmol/L (98-107); Estimated Creatinine Clearance 38 ml/min; Glucose 284 mg/dl (70-99); Sodium 132 mmol/L (135-145); Total Protein 6.3 g/dl (6.3-8.2); eGFR 33.53
--- NOTE | 2023-11-08 16:35 | CM ---
Patient seen at bedside in ED earlier today. Patient states that he lives with his family/ in a 2 story home. Patient has a cane and a bipap that he does use and is in the ED room. Patient PCP is Dr. Sánchez and he uses the [facility] in
[place]. Patient stated that he does not anticipate any discharge needs at discharge. CM will continue to follow for discharge planning needs.
Plan; home with no needs
[2023-11-08] MEDS: ZOSYN IV (17:53)
[2023-11-08 18:50] LABS: Glucose - Point of Care 228 mg/dl (70-99)
[2023-11-08] MEDS: NOVOLOG FLEXPEN-MODERATE RESISTANCE 3 UNITS SC (19:00)
[2023-11-08] MEDS: BETAPACE 80 MG PO (19:27)
[2023-11-08 19:42] LABS: Hepatitis C Antibody Negative (Negative)
[2023-11-08 20:00] VITALS: BP 104/60
[2023-11-08 21:46] LABS: Glucose - Point of Care 294 mg/dl (70-99)
[2023-11-08] MEDS: OCEAN, SALINE MIST 1 SPRAYS NASAL (22:00)
[2023-11-08 23:00] VITALS: BP 122/58
[2023-11-09] MEDS: LR 1000 IV ×3 (00:43→12:58)
[2023-11-09] MEDS: ZOSYN 50 IV ×3 (00:43→11:38)
[2023-11-09] MEDS: MORPHINE SULFATE 2 MG IV ×3 (01:48→22:24)
[2023-11-09 03:00] VITALS: BP 121/64
--- NOTE | 2023-11-09 07:06 | W.PN.GI.CBS2 ---
Today's Communication / Plan
-
See assessment and plan for details.
Assessment / Plan
-
1. Pancreatitis: Acute, interstitial, overall much improved with aggressive IV hydration, with decreased hemoglobin, LFTs and white count. Etiology is likely gallstone given pattern of LFTs. MRI did show gallstones, though CBD was otherwise and
pancreas unremarkable. At this point will await morning labs though if okay will decrease IV fluids and advance to full liquid diet. Okay to DC antibiotics from GI standpoint as leukocytosis likely reactionary from pancreatitis. Surgery has been
consulted for probable eventual cholecystectomy.
2. Abnormal MRI: With possible renal lesion noted, not noted on CT scan. Would consider urology evaluation.
Subjective
Subjective
Date of Service: November 09, 2023
Patient overall feeling much better, much less abdominal pain, no vomiting, tolerating clears without difficulty.
Objective
Data Reviewed
Laboratory Data:
Laboratory Results
Total Bilirubin 2.0 mg/dl (0.2-1.3) H 11/08/23 15:39
AST 49 U/L (17-59) 11/08/23 15:39
ALT 168 U/L (0-50) H 11/08/23 15:39
Alkaline Phosphatase 201 U/L (38-126) H 11/08/23 15:39
Lipase 895 U/L (23-300) H 11/08/23 06:16
Vital Signs and I&O:
Vital Signs
Temp Pulse Resp BP Pulse Ox
99.1 F 78 18 121/64 98
11/09/23 03:00 11/09/23 03:00 11/09/23 03:00 11/09/23 03:00 11/09/23 03:00
I&O
11/08/23 11/09/23 11/10/23
06:59 06:59 06:59
Intake Total 4350 / 4350
Output Total 900 / 900
Balance 3450 / 3450
Physical Exam
Physical Exam
General: NAD
Abdomen: normal bowel sounds, soft, minimal epigastric tenderness, no masses or bruits, no ascites
[2023-11-09 07:45] VITALS: BP 121/67
[2023-11-09 08:16] LABS: Glucose - Point of Care 184 mg/dl (70-99)
[2023-11-09] MEDS: NOVOLOG FLEXPEN-MODERATE RESISTANCE 1 UNITS SC (08:45)
[2023-11-09] MEDS: COZAAR 100 MG PO (08:47)
[2023-11-09] MEDS: TOPROL XL 12.5 MG PO (08:47)
[2023-11-09] MEDS: COLACE 100 MG PO ×2 (08:47→20:16)
[2023-11-09] MEDS: NORVASC 10 MG PO (08:47)
[2023-11-09] MEDS: NSS (PRESERVATIVE FREE) 10 ML IV (08:48)
[2023-11-09] MEDS: PROTONIX IV 40 MG IV (08:48)
--- NOTE | 2023-11-09 09:28 | W.PN.HOSP.TC ---
Today's Communication/Plan
-
add MSAS protocol
continue IVF
await labs
await GS inputs
Assessment / Plan
Assessment / Plan
Assessment:
Acute pancreatitis with leukocytosis
Elevated LFTs
- suspected biliary origin
- MRI: Single gallstone identified in the region of the neck of the gallbladder. No evidence for gallbladder wall thickening or pericholecystic edema. No evidence for intrahepatic or extrahepatic biliary ductal dilation. There is no evidence for
common bile duct calculus. Caliber of the common bile duct stent is small within the head of the pancreas, which is likely due to pancreatitis.
- s/p IVF with improvement in Lipase levels and pain, WBC improving.
- on clears; ADAT
- GI and GS following
- continue IV Zosyn for now pending decisions
Renal Mass on MRI
- likely RCC based off report
- UA with minimal blood, no infection
- he denies flank pain
- OP urology evaluation to determine possibly nephrectomy
IDDM
- continue Lantus/Aspart
- continue SSI
- A1C: 7.0%
Hyponatremia
SARAH
- continue IVF
- monitor BMP
- bladder scans
Paroxysmal A. Fib
- hold Eliquis
- continue BB
hx of ETOH intake
- add MSAS protocol
DVT ppx: SCDs for now
Code: Full
Anticipated Discharge: 24 - 48 hours
Subjective/Interval History
-
Date of Service: November 09, 2023
reports pain improving
no nausea
tolerating clears
Objective Data
-
Labs:
Laboratory Results
11/09/23
06:00
WBC Pending
Hgb Pending
Hct Pending
Plt Count Pending
Sodium Pending
Potassium Pending
Chloride Pending
Carbon Dioxide Pending
BUN Pending
Creatinine Pending
Glucose Pending
Calcium Pending
Total Bilirubin Pending
AST Pending
ALT Pending
Alkaline Phosphatase Pending
Vital Signs:
Vital Signs
Temp Pulse Resp BP Pulse Ox
98.1 F 79 16 121/67 98
11/09/23 07:45 11/09/23 07:45 11/09/23 07:45 11/09/23 07:45 11/09/23 07:45
I&O
11/08/23 11/09/23 11/10/23
06:59 06:59 06:59
Intake Total 4350 / 4350
Output Total 900 / 900
Balance 3450 / 3450
Physical Exam
-
General: No Apparent Distress
HEENT: Normocephalic and Atraumatic
Respiratory: Negative Wheezes or Rales
Cardiac: Regular Rhythm and S1/S2
GI: Soft and Nontender
Musculoskeletal: No Edema
Neuro: AO x 3
Hematologic / Lymphatic: No Lymphadenopathy
Psych: Calm
Data Reviewed
-
Total Time Spent with Patient (in minutes): 45
Labs: Labs Reviewed by me
--- NOTE | 2023-11-09 10:05 | CON.GS ---
Addendum entered and electronically signed by Meir Pink MD 11/09/23 12:15:
Patient seen and examined independently of resident. Agree with documented consultation below. Discussed care plan as outlined with resident as well.
HPI: 78-year-old male presenting with acute onset of epigastric abdominal pain with some radiation to the back and right side. First bout started last but started improving. He was having loose stools so thought it may have been related
to diarrhea. Had Easter dinner which resulted in acute deterioration and worsening of his abdominal pain now with nausea/vomiting. States that he noted his atrial fibrillation was worse with heart rate in the 150s. Secondary to severity of
symptoms he presented to the emergency department for evaluation 48 hours ago. He was admitted with gallstone pancreatitis. He states he has alcohol on occasion but no significant consumption related to these events. No similar episodes of
biliary colic in the past that he is aware of.
Very significant past abdominal surgical history including laparotomy, ostomy with subsequent reversal, hernia repairs with mesh and subsequent development of large recurrent hernia with essentially loss of domain.
Past medical history: A-fib on Eliquis, obesity, diabetes, hypertension, CKD
Family history reviewed and noncontributory. Social history as documented below.
Afebrile vital signs stable
No acute distress awake alert [place] x 3
Abdomen softly protuberant with large ventral abdominal hernia. Slight tenderness on palpation epigastrium. No right upper quadrant pain no rebound rigidity or guarding.
Laboratory testing reviewed. Leukocytosis improved to 12.8, hemoglobin stable 11.9. Platelet count 193. Chemistry panel from today still pending. Yesterday demonstrated improving LFTs and lipase.
MRI abdomen confirms gallstones, gallbladder without wall thickening or pericholecystic edema. No choledocholithiasis. Continued peripancreatic edema consistent with acute pancreatitis but without any fluid collections or signs of necrosis.
Assessment/plan: 78-year-old male with probable gallstone mediated pancreatitis and probable passed gallstone. Radiographic imaging without evidence of choledocholithiasis and clinically improving.
Reviewed with patient indications for cholecystectomy. He was administered Eliquis last night during his hospitalization we therefore discussed that cholecystectomy would have to be deferred on for at least 48 hours for washout particularly given
his chronic renal insufficiency which with delayed clearance as well. This would put us off till Sunday for cholecystectomy. His preference is to therefore continue with current treatment of his resolving acute pancreatitis and if medically stable
be discharged with outpatient surgical follow-up for interval cholecystectomy.
Okay to advance diet to low-fat as tolerated.
Continue to hold Eliquis until we are sure that there is no rebound of his pancreatitis and surgery will definitively be with interval cholecystectomy.
Will follow and see tomorrow a.m.
Original Note:
Medical History
-
Chief Complaint: Abdominal pain
History of Present Illness:
Pt is a 78 yr old male with history of a-fib on ELiquis, insulin-dependent Diabetes, HTN, cholelithiasis, who presented 2 days ago with intermittent sharp abdominal pain for 6 days prior, starting at RLQ moving to epigastrium. There was poor
appetite and diarrhea associated. At presentation, he complained of nausea, vomiting, and elevated heart rate/a-fib rhythm. Labs showed leukocytosis, elevated lipase >4000, elevated transaminases and alkaline phosphatase.
Previous abdominal surgery includes colon resection for perforated bowel of uncertain cause (1991), with colostomy and later reversal.
CT abd/pelvis showed cholelithiasis with no evidence of CBD obstruction. MRI w/wo contrast on 11/08/2023 showed pancreatitis with no evidence of necrosis, with no CBD obstruction or bile duct dilation.
Significant clinical improvement today. Normal appetite, no nausea/vomiting or abdominal pain.
Past Medical History
Past Medical History: Arrhythmias (afib on Eliquis), CAD, HTN, IDDM and Other (CKD, )
Past Surgical History: Bowel Resection, Hernia Repair and Orthopedic (bilateral hip replacement)
Social History
Tobacco: Former Smoker
Alcohol: Occasional
Drug: None
Personal:
Living: With Family
Employment: Retired
Family History
Family History: Reviewed & Noncontributory
Allergies / Home Medications
Allergy/AdvReac Type Severity Reaction Status Date / Time
metformin Allergy Unknown Verified 11/07/23 05:22
rosiglitazone maleate Allergy Unknown Verified 11/07/23 05:22
[From Avandia]
ezetimibe [From Zetia] AdvReac MYALGIAS Verified 11/07/23 05:22
lisinopril [Lisinopril] AdvReac COUGH Verified 11/07/23 05:22
simvastatin [From Zocor] AdvReac MYALGIAS Verified 11/07/23 05:22
�Medication �Instructions �Recorded �Confirmed �Type
sotalol 80 mg tablet 80 mg PO QPM Arrhythmia 07/14/09 11/08/23 History
atorvastatin 20 mg tablet 20 mg PO DAILY High Cholesterol 01/10/17 11/08/23 History
insulin aspart U-100 100 unit/mL 12 - 16 units SC AC Diabetes 01/10/17 11/08/23 History
(3 mL) subcutaneous pen (Novolog
FlexPen U-100 Insulin aspart)
metoprolol succinate 25 mg 12.5 mg PO DAILY Blood Pressure 01/10/17 11/08/23 History
tablet,extended release 24 hr
psyllium husk (aspartame) 3.4 gram 1 packet PO DAILY Constipation 01/10/17 11/07/23 History
oral powder packet (Metamucil
Fiber Singles)
amlodipine 10 mg tablet 10 mg PO DAILY Blood Pressure #0 05/10/23 11/08/23 Rx
tabs
losartan 100 mg tablet (Cozaar) 100 mg PO DAILY Blood Pressure #0 05/10/23 11/07/23 Rx
tabs
acetaminophen 500 mg capsule 1,000 mg PO HS Pain 11/07/23 11/07/23 History
apixaban 5 mg tablet (Eliquis) 5 mg PO BID Blood Clot 11/07/23 11/08/23 History
Prevention/Tx
docusate sodium 100 mg capsule 100 mg PO BID Constipation 11/07/23 11/08/23 History
furosemide 40 mg tablet 40 mg PO DAILY Fluid 11/07/23 11/07/23 History
Retention/Swelling
insulin glargine 100 unit/mL (3 38 - 43 unit SC HS Diabetes 11/07/23 11/07/23 History
mL) subcutaneous pen (Lantus
Solostar U-100 Insulin)
sodium chloride 0.65 % nasal spray 1 spray intranasal HS dryness 11/07/23 11/07/23 History
aerosol
Review of Systems
-
History Source: Patient
Constitutional: Fever (negative)
Abdomen/GI: Abdominal Pain (negative), Nausea (negative), Vomiting (negative) and Diarrhea (negative)
: No Symptoms
A 10 point review of systems was completed, and was negative except as per HPI.
Physical Exam
Vital Signs
Temp Pulse Resp BP Pulse Ox
98.1 F 79 16 121/67 98
11/09/23 07:45 11/09/23 07:45 11/09/23 07:45 11/09/23 07:45 11/09/23 07:45
11/08/23 11/09/23 11/10/23
06:59 06:59 06:59
Actual Weight 110.478 kg
Body Mass Index (BMI) 34.9
Lab Results
WBC 17.6 10^3/uL (4.8-10.8) H 11/08/23 06:16
Hgb 12.5 g/dL (13.0-18.0) L 11/08/23 06:16
Hct 34.8 % (39.0-52.0) L 11/08/23 06:16
Plt Count 202 10^3/uL (130-400) D 11/08/23 06:16
Abs Immat Gran (auto) Cancelled 11/08/23 06:16
Neutrophils % Cancelled 11/08/23 06:16
Physical Exam
General: No Apparent Distress, Comfortable and Good Appetite; Negative Pain, Fever or Sweats
HEENT: Normocephalic and Anicteric
Respiratory: Non Labored Respirations; Negative Accessory Resp Muscle Use
Cardiac: Negative Peripheral Edema
GI: Soft, Non Distended, Tender (mild tenderness in epigatrium) and Other (large girth, non-distended. Large midline abdominal scar )
Musculoskeletal: No Clubbing, No Cyanosis, No Edema and Other (venous stasis dermatitis bilaterally)
Skin: Warm and Dry; Negative Rash or Jaundice
Neuro: Awake, Alert and Oriented
Psych: Calm
Assessment / Plan
-
78 yr old male with acute pancreatitis, with significant improvement.
Acute pancreatitis:
- Gallstone pancreatitis vs alcohol induced. Imaging showed cholelithiasis but no CBD calculus. Significant clinical improvement today with rapid hydration and Abx. No nausea/vomiting, no abdominal pain. Morning labs pending, but WBC trending down,
Rapid downtrend of lipase >4000--> 895. LFTs improving, with normal AST, [id number], alk phos 201.
- No surgical intervention planned at this time.
- Abx discontinued as leukocytosis likely reactive.
- NPO since Sunday night, advance to regular diet today. Possible discharge today if pt prefers
- Pt last took Eliquis last night, precluding the possibility of cholecystectomy today. Can follow up outpatient and schedule non-urgent cholecystectomy.
--- NOTE | 2023-11-09 10:34 | CM ---
Met with patient at bedside; initial assessment and case management consult completed
Pharmacy verified: [facility], [place]
IMM explained and signed @ 1030
Patient reports he lives with his and daughter in a ranc[place] with basement; outside ramp to enter; 5-6 steps down to basement; bathroom has walk-in shower
DME: cane, raised toilet seat, grab bars, shower chair, hearing aid, BiPAP @ night; continuous glucose monitor
PLOF: patient reports that he is independent with ADLs; ambulates with a cane only when he goes outside; drives
Transportation: daughter will provide ride home
SNF/Rehab/Home Health utilization history: none
Plan: Surgery consult pending; discharge to home when medically stable; does not think he will need any services at discharge
[2023-11-09 11:09] VITALS: BP 126/62
[2023-11-09] MEDS: THIAMINE INJECTION 200 MG IV ×2 (11:38→20:16)
[2023-11-09 11:53] LABS: % Basophils 0.5 % (0-2); % Eosinophils 3.1 % (0-6); % Immature Granulocytes 0.5 % (0-0.5); % Lymphocytes 6.8 % (20.5-51.1); % Monocytes 7.8 % (1.7-9.3); % Neutrophils 81.3 % (42.2-75.2); Absolute Basophils 0.1 10^3/uL (0-0.2); Absolute Eosinophils 0.4 10^3/uL (0-0.7); Absolute Immature Granulocytes 0.1 10^3/uL (0-0.05); Absolute Lymphocytes 0.9 10^3/uL (1.2-3.4); Absolute Neutrophils 10.4 10^3/uL (1.4-6.5); Hematocrit 33.3 % (39.0-52.0); Hemoglobin 11.9 g/dL (13.0-18.0); Mean Corp Hgb Conc. 35.7 g/dL (33.0-37.0); Mean Corpuscular Hgb 35.7 pg (27.0-31.0); Mean Platelet Volume 9.9 fL (7.4-10.4); Nucleated Red Blood Cells % 0 % (-); Platelet Count 193 10^3/uL (130-400); Red Blood Cell Count 3.33 10^6/uL (4.70-6.10); Red Cell Dist. Width 12.1 % (11.5-14.5); White Blood Cell Count 12.8 10^3/uL (4.8-10.8)
[2023-11-09 11:55] LABS: Glucose - Point of Care 201 mg/dl (70-99)
[2023-11-09 12:36] LABS: ALT (SGPT) 139 U/L (0-50); AST (SGOT) 41 U/L (17-59); Albumin 3.1 g/dl (3.5-5.0); Alkaline Phosphatase 206 U/L (38-126); Blood Urea Nitrogen 36 mg/dl (9-20); Calcium 9.2 mg/dl (8.4-10.2); Carbon Dioxide 12 mmol/L (22-30); Chloride 109 mmol/L (98-107); Estimated Creatinine Clearance 40 ml/min; Glucose 230 mg/dl (70-99); Lipase 181 U/L (23-300); Potassium 4.3 mmol/L (3.5-5.1); Sodium 131 mmol/L (135-145); Total Protein 6.4 g/dl (6.3-8.2); eGFR 35.66
[2023-11-09] MEDS: NOVOLOG FLEXPEN-MODERATE RESISTANCE 3 UNITS SC ×2 (12:52→17:19)
[2023-11-09] MEDS: SODIUM BICARBONATE 1150 MEQ IV (13:19)
[2023-11-09 15:00] VITALS: BP 131/65
[2023-11-09 16:31] LABS: Glucose - Point of Care 200 mg/dl (70-99)
[2023-11-09] MEDS: BETAPACE 80 MG PO (17:18)
[2023-11-09 19:00] VITALS: BP 136/68
[2023-11-09 22:24] LABS: Glucose - Point of Care 222 mg/dl (70-99)
[2023-11-09] MEDS: OCEAN, SALINE MIST 1 SPRAYS NASAL (22:25)
[2023-11-09] MEDS: LANTUS 0.200000000000000011 UNITS SC (22:25)
[2023-11-09 23:00] VITALS: BP 147/77
[2023-11-10 03:04] VITALS: BP 146/71
[2023-11-10 07:00] VITALS: BP 123/64
[2023-11-10 07:20] LABS: Glucose - Point of Care 163 mg/dl (70-99)
[2023-11-10 08:01] LABS: % Basophils 0.4 % (0-2); % Eosinophils 1.9 % (0-6); % Immature Granulocytes 0.4 % (0-0.5); % Lymphocytes 6.3 % (20.5-51.1); % Monocytes 6.3 % (1.7-9.3); % Neutrophils 84.7 % (42.2-75.2); Absolute Basophils 0.1 10^3/uL (0-0.2); Absolute Eosinophils 0.3 10^3/uL (0-0.7); Absolute Immature Granulocytes 0.1 10^3/uL (0-0.05); Absolute Lymphocytes 0.9 10^3/uL (1.2-3.4); Absolute Monocytes 0.9 10^3/uL (0.1-0.6); Absolute Neutrophils 12.2 10^3/uL (1.4-6.5); Hematocrit 35.5 % (39.0-52.0); Hemoglobin 12.6 g/dL (13.0-18.0); Mean Corp Hgb Conc. 35.5 g/dL (33.0-37.0); Mean Corpuscular Hgb 36.2 pg (27.0-31.0); Mean Platelet Volume 9.6 fL (7.4-10.4); Nucleated Red Blood Cells % 0 % (-); Platelet Count 233 10^3/uL (130-400); Red Blood Cell Count 3.48 10^6/uL (4.70-6.10); Red Cell Dist. Width 11.9 % (11.5-14.5); White Blood Cell Count 14.4 10^3/uL (4.8-10.8)
[2023-11-10 08:22] LABS: ALT (SGPT) 103 U/L (0-50); AST (SGOT) 50 U/L (17-59); Albumin 2.9 g/dl (3.5-5.0); Alkaline Phosphatase 194 U/L (38-126); Blood Urea Nitrogen 34 mg/dl (9-20); Calcium 9.2 mg/dl (8.4-10.2); Carbon Dioxide 21 mmol/L (22-30); Chloride 103 mmol/L (98-107); Estimated Creatinine Clearance 45 ml/min; Glucose 181 mg/dl (70-99); Potassium 3.9 mmol/L (3.5-5.1); Sodium 133 mmol/L (135-145); Total Bilirubin 1.6 mg/dl (0.2-1.3); eGFR 40.75
[2023-11-10] MEDS: NOVOLOG FLEXPEN-MODERATE RESISTANCE 1 UNITS SC (08:46)
[2023-11-10] MEDS: FOLVITE 1 MG PO (08:46)
[2023-11-10] MEDS: NSS (PRESERVATIVE FREE) 10 ML IV (08:46)
[2023-11-10] MEDS: THIAMINE INJECTION 200 MG IV (08:46)
[2023-11-10] MEDS: COZAAR 100 MG PO (08:46)
[2023-11-10] MEDS: COLACE 100 MG PO (08:47)
[2023-11-10] MEDS: NORVASC 10 MG PO (08:47)
[2023-11-10] MEDS: TOPROL XL 12.5 MG PO (08:47)
[2023-11-10] MEDS: PROTONIX IV 40 MG IV (08:47)
--- NOTE | 2023-11-10 09:27 | W.PN.GI.CBS2 ---
Today's Communication / Plan
-
Please see assessment and plan for details.
Assessment / Plan
-
1. Pancreatitis: Acute, interstitial, overall much improved with aggressive IV hydration, with decreased hemoglobin, LFTs and white count. Etiology is likely gallstone given pattern of LFTs. MRI did show gallstones, though CBD was otherwise and
pancreas unremarkable. He is okay to DC from GI standpoint, to follow-up with surgery for elective cholecystectomy.
2. Abnormal MRI: With possible renal lesion noted, not noted on CT scan. To follow-up with urology as planned.
We will sign off for now, please call back with any further questions.
Subjective
Subjective
Date of Service: November 10, 2023
Patient feeling better, no abdominal pain, tolerated diet without difficulty.
Objective
Data Reviewed
Laboratory Data:
Laboratory Results
11/10/23 07:44
11/10/23 07:44
Laboratory Results
Total Bilirubin 1.6 mg/dl (0.2-1.3) H 11/10/23 07:44
AST 50 U/L (17-59) 11/10/23 07:44
ALT 103 U/L (0-50) H 11/10/23 07:44
Alkaline Phosphatase 194 U/L (38-126) H 11/10/23 07:44
Lipase 181 U/L (23-300) 11/09/23 11:34
Vital Signs and I&O:
Vital Signs
Temp Pulse Resp BP Pulse Ox
98.1 F 82 18 123/64 98
11/10/23 07:00 11/10/23 07:00 11/10/23 07:00 11/10/23 07:00 11/10/23 07:00
I&O
11/09/23 11/10/23 11/11/23
06:59 06:59 06:59
Intake Total 4350 / 4350 660 / 660
Output Total 900 / 900 1100 / 1100
Balance 3450 / 3450 -440 / -440
Physical Exam
Physical Exam
General: NAD
Abdomen: normal bowel sounds, soft, no tenderness, no masses or bruits, no ascites
--- NOTE | 2023-11-10 09:33 | W.PN.HOSP.TC ---
Today's Communication/Plan
-
likely DC later this afternoon after GS evals
LFD, resume Eliquis
OP Elective cholecystectomy is patient preference
reviewed at length again about Urology f/u for renal mass found on MRI
Assessment / Plan
Assessment / Plan
Assessment:
Acute pancreatitis with leukocytosis
Elevated LFTs
- suspected biliary origin
- MRI: Single gallstone identified in the region of the neck of the gallbladder. No evidence for gallbladder wall thickening or pericholecystic edema. No evidence for intrahepatic or extrahepatic biliary ductal dilation. There is no evidence for
common bile duct calculus. Caliber of the common bile duct stent is small within the head of the pancreas, which is likely due to pancreatitis.
- s/p IVF with improvement in Lipase levels and pain, WBC improving.
- tolerated LFD
- patient opts for dc with outpatient f/u for elective cholecystectomy
- GI and GS following
Renal Mass on MRI
- likely RCC based off report
- UA with minimal blood, no infection
- he denies flank pain
- OP urology evaluation to determine possibly nephrectomy
IDDM
- continue Lantus/Aspart
- continue SSI
- A1C: 7.0%
Hyponatremia
SARAH
hyperchloremic metabolic acidosis from NSS
- improved with bicarb fluids switch from NSS
- monitor BMP
- bladder scans
Paroxysmal A. Fib
- resume Eliquis at discharge
- continue BB
hx of ETOH intake
- add MSAS protocol
DVT ppx: SCDs for now
Code: Full
Anticipated Discharge: Today
Subjective/Interval History
-
Date of Service: November 10, 2023
denies any new complaints, tolerating diet
Objective Data
-
Labs:
Laboratory Results
11/10/23
07:44
WBC 14.4 H
Hgb 12.6 L
Hct 35.5 L
Plt Count 233 D
Sodium 133 L
Potassium 3.9
Chloride 103
Carbon Dioxide 21 L
BUN 34 H
Creatinine 1.7 H
Glucose 181 H
Calcium 9.2
Total Bilirubin 1.6 H
AST 50
ALT 103 H
Alkaline Phosphatase 194 H
Vital Signs:
Vital Signs
Temp Pulse Resp BP Pulse Ox
98.1 F 82 18 123/64 98
11/10/23 07:00 11/10/23 07:00 11/10/23 07:00 11/10/23 07:00 11/10/23 07:00
I&O
11/09/23 11/10/23 11/11/23
06:59 06:59 06:59
Intake Total 4350 / 4350 660 / 660
Output Total 900 / 900 1100 / 1100
Balance 3450 / 3450 -440 / -440
Physical Exam
-
General: No Apparent Distress
HEENT: Normocephalic and Atraumatic
Respiratory: Negative Wheezes or Rales
Cardiac: Regular Rhythm and S1/S2
GI: Soft and Nontender
Genito-urinary: No Costovertebral Tender
Musculoskeletal: No Edema
Neuro: AO x 3
Hematologic / Lymphatic: No Lymphadenopathy
Psych: Calm
Data Reviewed
-
Total Time Spent with Patient (in minutes): 42
Labs: Labs Reviewed by me
--- NOTE | 2023-11-10 09:39 | W.DS.TRANS ---
DC Summary - Shift Coordinator
-
Discharge Instructions:
Discharge Diagnosis/Procedures acute pancreatitis, improved. gallbladder neck
stone requiring elective gallbladder surgery
Diet Low Fat
Activity As tolerated
Bathing Restrictions None
Instructions:
Stand-Alone Forms:
Changes to Home Medications: No
Discharge Medications:
DC Medications w/original date entered in [employer]
sotalol 80 mg tablet 80 mg PO QPM Arrhythmia 07/14/09
atorvastatin 20 mg tablet 20 mg PO DAILY High Cholesterol 01/10/17
insulin aspart U-100 100 unit/mL (3 mL) subcutaneous pen (Novolog FlexPen U-100 Insulin aspart) 12 - 16 units SC AC Diabetes 01/10/17
metoprolol succinate 25 mg tablet,extended release 24 hr 12.5 mg PO DAILY Blood Pressure 01/10/17
psyllium husk (aspartame) 3.4 gram oral powder packet (Metamucil Fiber Singles) 1 packet PO DAILY Constipation 01/10/17
amlodipine 10 mg tablet 10 mg PO DAILY Blood Pressure #0 tabs 05/10/23
losartan 100 mg tablet (Cozaar) 100 mg PO DAILY Blood Pressure #0 tabs 05/10/23
acetaminophen 500 mg capsule 1,000 mg PO HS Pain 11/07/23
apixaban 5 mg tablet (Eliquis) 5 mg PO BID Blood Clot Prevention/Tx 11/07/23
docusate sodium 100 mg capsule 100 mg PO BID Constipation 11/07/23
furosemide 40 mg tablet 40 mg PO DAILY Fluid Retention/Swelling 11/07/23
insulin glargine 100 unit/mL (3 mL) subcutaneous pen (Lantus Solostar U-100 Insulin) 38 - 43 unit SC HS Diabetes 11/07/23
sodium chloride 0.65 % nasal spray aerosol 1 spray intranasal HS dryness 11/07/23
Home Medication Changes
Pending Results: No
Total time spent discharging patient (in min): 41
[2023-11-10 10:52] LABS: Glucose - Point of Care 270 mg/dl (70-99)
[2023-11-10 11:00] VITALS: BP 138/65
[2023-11-10] MEDS: MORPHINE SULFATE 2 MG IV (11:11)
[2023-11-10] MEDS: NOVOLOG FLEXPEN-MODERATE RESISTANCE 5 UNITS SC (11:15)
--- NOTE | 2023-11-10 11:44 | CM ---
Patient seen bedside, reports no new concerns at this time, denies any needs upon discharge. Patient reports he has transportation home. CM will continue to follow for discharge planning needs.
Plan; home no needs.
--- NOTE | 2023-11-10 12:34 | W.PN.GS2 ---
Today's Communication / Plan
-
`
Assessment / Plan
-
Assessment: 78-year-old male with probable gallstone mediated acute pancreatitis
Clinically and biochemically resolving. MRCP negative for choledocholithiasis.
Plan: Patient is tolerated dietary advancement
In the setting of Eliquis and necessary washout his preference is for discharge home with outpatient follow-up/scheduling of interval cholecystectomy in the near future.
My office will reach out to him this upcoming week to assist with setting future date for interval laparoscopic cholecystectomy
Subjective Data
-
Date of Service: November 10, 2023
Patient seen and examined.
Sitting in chair at bedside comfortably, just ate some of his lunch.
Presenting abdominal pain resolved.
Reports back pain but this is chronic and usual for him, reports abdominal discomfort from chronic large ventral hernia unchanged.
No nausea
Objective Data
-
Intake and Output
11/09/23 11/10/23 11/11/23
06:59 06:59 06:59
Intake Total 4350 / 4350 660 / 660
Output Total 900 / 900 1100 / 1100
Balance 3450 / 3450 -440 / -440
Intake:
Oral fluids 1000 / 1000 660 / 660
IV fluids (Total) 3250 / 3250
LR 1000 / 1000
Zosyn 50 / 50
IV piggybacks 100 / 100
Output:
Urine, Voided 900 / 900 1100 / 1100
Other:
Number of unmeasured voidings 1
How many times incontinent 1
SATURATED amount urine
Vital Signs
Temp Pulse Resp BP Pulse Ox
97.9 F 79 16 138/65 92
11/10/23 11:00 11/10/23 11:00 11/10/23 11:00 11/10/23 11:00 11/10/23 11:00
Lab Results
11/10/23 07:44
11/10/23 07:44
Calcium 9.2 mg/dl (8.4-10.2) 11/10/23 07:44
Total Bilirubin 1.6 mg/dl (0.2-1.3) H 11/10/23 07:44
Direct Bilirubin 1.6 mg/dl (0.0-0.4) H 11/07/23 05:42
AST 50 U/L (17-59) 11/10/23 07:44
ALT 103 U/L (0-50) H 11/10/23 07:44
Alkaline Phosphatase 194 U/L (38-126) H 11/10/23 07:44
Total Protein 6.0 g/dl (6.3-8.2) L 11/10/23 07:44
Albumin 2.9 g/dl (3.5-5.0) L 11/10/23 07:44
Physical Exam
-
NAD AAOx3
ABD: Obese, soft, slight tenderness to palpation epigastric region, large chronic ventral hernia with essentially loss of domain. No localizing right upper quadrant tenderness. No rebound rigidity or guarding.
== END 2023-11-10 14:10 | disposition home or self-care (01) | DRG 439 ==
LOC: 4 WEST ACU 15:15
PROVIDERS: Student in an Organized Health Care Education/Training Program; ADMITTING PHYSICIAN Internal Medicine; ATTENDING PHYSICIAN Internal Medicine; CONSULT PHYSICIAN Internal Medicine Gastroenterology; CONSULT PHYSICIAN Surgery; EMERGENCY PHYSICIAN Student in an Organized Health Care Education/Training Program; FAMILY PHYSICIAN Family Medicine
DX: K85.10 Biliary acute pancreatitis without necrosis or infection (principal); E87.1 Hypo-osmolality and hyponatremia; N17.9 Acute kidney failure, unspecified; E87.29 Other acidosis; N28.89 Other specified disorders of kidney and ureter; E11.22 Type 2 diabetes mellitus with diabetic chronic kidney disease; N18.32 Chronic kidney disease, stage 3b; I12.9 Hypertensive chronic kidney disease with stage 1 through stage 4 chronic kidney disease, or unspecified chronic kidney disease; I48.0 Paroxysmal atrial fibrillation; E66.9 Obesity, unspecified; Z68.34 Body mass index [BMI] 34.0-34.9, adult; Z79.01 Long term (current) use of anticoagulants; Z79.4 Long term (current) use of insulin
CPT/HCPCS: 74177; 74183; 80053; 81003; 81015; 82248; 82962; 83036; 83690; 85025; 85027; 86140; 86803; 87086; 93005; 96361; 96365; 96375; 96376; 99285; A9575; Q9967

== ENCOUNTER → 2024-01-15 06:45 | Outpatient (REF) | payer OTHER, SELFPAY ==
[2024-01-15 07:24] LABS: % Basophils 0.6 % (0-2); % Immature Granulocytes 0.3 % (0-0.5); % Lymphocytes 24.4 % (20.5-51.1); % Monocytes 7.9 % (1.7-9.3); % Neutrophils 59.8 % (42.2-75.2); Absolute Eosinophils 0.5 10^3/uL (0-0.7); Absolute Lymphocytes 1.6 10^3/uL (1.2-3.4); Absolute Monocytes 0.5 10^3/uL (0.1-0.6); Absolute Neutrophils 3.9 10^3/uL (1.4-6.5); Hematocrit 35.4 % (39.0-52.0); Hemoglobin 12.4 g/dL (13.0-18.0); Mean Corpuscular Hgb 36.4 pg (27.0-31.0); Mean Corpuscular Volume 103.8 fL (80.0-94.0); Mean Platelet Volume 9.2 fL (7.4-10.4); Nucleated Red Blood Cells % 0 % (-); Platelet Count 239 10^3/uL (130-400); Red Blood Cell Count 3.41 10^6/uL (4.70-6.10); Red Cell Dist. Width 12.3 % (11.5-14.5); White Blood Cell Count 6.6 10^3/uL (4.8-10.8)
[2024-01-15 07:38] LABS: ALT (SGPT) 22 U/L (0-50); AST (SGOT) 26 U/L (17-59); Albumin 4.1 g/dl (3.5-5.0); Alkaline Phosphatase 143 U/L (38-126); Blood Urea Nitrogen 33 mg/dl (9-20); Calcium 9.7 mg/dl (8.4-10.2); Carbon Dioxide 19 mmol/L (22-30); Chloride 109 mmol/L (98-107); Direct Bilirubin 0.4 mg/dl (0.0-0.4); Glucose 151 mg/dl (70-99); INR 1.06; LDH 156 U/L (120-246); PT 13.6 Sec (11.4-14.6); Potassium 4.3 mmol/L (3.5-5.1); Sodium 141 mmol/L (135-145); Total Bilirubin 0.6 mg/dl (0.2-1.3); Total Protein 7.6 g/dl (6.3-8.2); eGFR 43.83
[2024-01-15 07:39] LABS: APTT 28.5 Sec (23.4-35.0)
[2024-01-15 07:40] VITALS: BP 131/59; BP_SYST 62
== END ==
LOC: RADI 06:45
PROVIDERS: ATTENDING PHYSICIAN Radiology Diagnostic Radiology; FAMILY PHYSICIAN Family Medicine; REFERRING PHYSICIAN Urology
DX: N28.89 Other specified disorders of kidney and ureter (principal); Z53.8 Procedure and treatment not carried out for other reasons
CPT/HCPCS: 36415; 80053; 82248; 83615; 85025; 85610; 85730

== ENCOUNTER 2024-02-05 08:07 | Day surgery (SDC) | payer OTHER, SELFPAY ==
[2024-02-05] VITALS (16 sets, daily range): BP systolic 55–151; BP diastolic 56–81
[2024-02-05] MEDS: ANCEF 10 IV (07:55)
[2024-02-05] MEDS: NSS 1000 IV ×2 (07:55→13:05)
[2024-02-05 08:51] LABS: Glucose - Point of Care 163 mg/dl (70-99)
[2024-02-05 12:34] LABS: Glucose - Point of Care 177 mg/dl (70-99)
[2024-02-05] MEDS: DILAUDID 0.25 MG IV (13:07)
--- NOTE | 2024-02-05 14:59 | PTCARENOTE ---
Pt arrived to 2s in bed. Full assessment completed. R lateral abdomen incisional sites with scant amount of old drainage noted to krunal. Soft around the sites, no hematoma noted. Q15 and Q30 site checks completed in PACU per Jose RN, this RN to
assume q1 site checks. IVF infusing per order. Pt educated on bedrest until 1630 per MD, verbalized understanding. Pt vomited in transport while on the way to 2S from PACU. Stated feeling relief after emesis, denies nausea at this time, denies need
for antiemetic at this time. Bed locked and in the lowest position, safety maintained. Oriented to room and call miles.
[2024-02-05] MEDS: ZOFRAN 4 MG IV (17:04)
[2024-02-05 17:31] LABS: Glucose - Point of Care 220 mg/dl (70-99)
[2024-02-05] MEDS: NOVOLOG FLEXPEN-LOW RESISTANCE 2 UNITS SC (18:07)
[2024-02-05] MEDS: LIPITOR 20 MG PO (18:08)
[2024-02-05 19:41] LABS: Blood Urea Nitrogen 32 mg/dl (9-20); Calcium 9.7 mg/dl (8.4-10.2); Carbon Dioxide 20 mmol/L (22-30); Chloride 111 mmol/L (98-107); Estimated Creatinine Clearance 59 ml/min; Glucose 201 mg/dl (70-99); Potassium 4.5 mmol/L (3.5-5.1); Sodium 141 mmol/L (135-145); eGFR 56.23
[2024-02-05 20:55] LABS: Glucose - Point of Care 223 mg/dl (70-99)
[2024-02-05] MEDS: BETAPACE 40 MG PO (20:58)
--- NOTE | 2024-02-05 21:00 | PTCARENOTE ---
Pt's Betapace PO verified by pharmacy, placed on telemetry monitoring per hospital policy.
[2024-02-05] MEDS: LANTUS 0.46000000000000002 UNITS SC (21:01)
[2024-02-05] MEDS: ROXICODONE 5 MG PO (21:10)
[2024-02-05] MEDS: NSS IV (23:37)
[2024-02-06] MEDS: NSS IV (03:00)
[2024-02-06 04:01] VITALS: BP 127/62
--- NOTE | 2024-02-06 07:29 | W.PN.GENERIC ---
Assessment / Plan
-
Mr Montenegro is a pleasant 78 yo male with right renal mass who underwent biopsy and cryoablation yesterday.
He is tolerating POs and voiding spontaneously.
Bx results pending
He is stable for discharge
I spent 35 minutes with the patient reviewing the images and medical records, and going over procedure, discharge instructions and expectations with the patient.
Physician Progress Note
Subjective
This 78-year-old male with right renal mass underwent biopsy and cryoablation yesterday. The patient was admitted to the hospital for observation following the procedure. He denies nause or vomiting. He is tolerating POs. He denies flank pain.
He is voiding spontaneously. He denies hematuria
PMH: Pancreatitis, ulcerative colitis, diabetes, GERD, bowel perforation, sleep apnea on BiPAP, hypertension, atrial fibrillation, atrial flutter, prior PA, hypercholesterolemia,
PSH: Colon resection with colostomy and subsequent reversal, cataract surgery, hernia repair, total hip replacement.
Social History: The patient is and lives with his . He is a former smoker and has quit more than 10 years ago
Medication reconciliation has been performed
Allergies: Pravastatin, metformin, Zetia, lisinopril, Asacol, Avandia, Zocor.
Current Medications: Acetaminophen, Depakote testosterone, docusate sodium, Eliquis, Lantus, Lasix,
Lipitor, low start and, Norvasc, NovoLog, psyllium husk, sotalol, could Uriah sterile, Toprol XL.
Objective
Vital Signs
Temp Pulse Resp BP Pulse Ox
99.1 F 61 17 127/62 95
02/06/24 04:01 02/06/24 04:01 02/06/24 04:01 02/06/24 04:01 02/06/24 04:01
Lab Results
02/05/24 19:17
Physical examination:
This is a well-nourished, well-developed 78-year-old male who is awake, alert and oriented in no acute distress lying in bed. Color is good. Skin is warm and dry. Heart is regular. Lungs are clear throughout. Abdomen is soft, round and nontender
with bowel sounds present. Dressing removed. Site CDI. No hematoma or flank pain He ambulates independently.
[2024-02-06 07:36] VITALS: BP 133/59
[2024-02-06 07:42] LABS: Glucose - Point of Care 155 mg/dl (70-99)
[2024-02-06] MEDS: NOVOLOG FLEXPEN-LOW RESISTANCE 1 UNITS SC (08:04)
[2024-02-06] MEDS: ELIQUIS 5 MG PO (08:05)
[2024-02-06] MEDS: COZAAR 100 MG PO (08:06)
[2024-02-06] MEDS: BETAPACE 40 MG PO (08:06)
[2024-02-06] MEDS: LASIX 40 MG PO (08:07)
[2024-02-06] MEDS: TOPROL XL 12.5 MG PO (08:07)
[2024-02-06] MEDS: NORVASC 10 MG PO (08:07)
[2024-02-06] MEDS: DULCOLAX 10 MG PO (09:39)
[2024-02-07 19:45] LABS: Hepatitis C Antibody Negative (Negative)
== END 2024-02-06 10:17 | disposition home or self-care (01) ==
LOC: SDS 08:07
PROVIDERS: ATTENDING PHYSICIAN Radiology Diagnostic Radiology; FAMILY PHYSICIAN Family Medicine
DX: C64.1 Malignant neoplasm of right kidney, except renal pelvis (principal); N28.89 Other specified disorders of kidney and ureter
CPT/HCPCS: 50593; C1888; 88305; 50200; 77012; 77013; 80048; 82962; 86803; 88341; 88342; C2618

== ENCOUNTER → 2024-06-09 06:20 | Outpatient (REF) | payer OTHER, SELFPAY ==
[2024-06-09 07:00] LABS: % Eosinophils 7.4 % (0-6); % Immature Granulocytes 0.2 % (0-0.5); % Lymphocytes 24.3 % (20.5-51.1); % Monocytes 9.5 % (1.7-9.3); % Neutrophils 57.6 % (42.2-75.2); Absolute Basophils 0.1 10^3/uL (0-0.2); Absolute Eosinophils 0.5 10^3/uL (0-0.7); Absolute Lymphocytes 1.5 10^3/uL (1.2-3.4); Absolute Monocytes 0.6 10^3/uL (0.1-0.6); Absolute Neutrophils 3.5 10^3/uL (1.4-6.5); Hematocrit 39.3 % (39.0-52.0); Hemoglobin 13.9 g/dL (13.0-18.0); Mean Corp Hgb Conc. 35.4 g/dL (33.0-37.0); Mean Corpuscular Hgb 35.9 pg (27.0-31.0); Mean Corpuscular Volume 101.6 fL (80.0-94.0); Mean Platelet Volume 9.3 fL (7.4-10.4); Nucleated Red Blood Cells % 0 % (-); Platelet Count 249 10^3/uL (130-400); Red Blood Cell Count 3.87 10^6/uL (4.70-6.10); Red Cell Dist. Width 11.8 % (11.5-14.5); White Blood Cell Count 6.1 10^3/uL (4.8-10.8)
[2024-06-09 07:26] LABS: HDL Cholesterol 41 mg/dl; LDL Cholesterol, Calculated 66 mg/dl; Lipase 73 U/L (23-300); Total Cholesterol 135 mg/dl (50-199); Triglyceride 142 mg/dl (10-149); Very Low Density Lipoprotein 28 mg/dl (0-30)
[2024-06-09 07:51] LABS: TSH 3.64 uIU/ml (0.47-4.68)
[2024-06-09 08:29] LABS: Glycohemoglobin (HgbA1c) 6.9 % (4.0-5.6)
[2024-06-09 11:09] LABS: ALT (SGPT) 18 U/L (0-50); AST (SGOT) 19 U/L (17-59); Albumin 4.4 g/dl (3.5-5.0); Alkaline Phosphatase 162 U/L (38-126); Blood Urea Nitrogen 47 mg/dl (9-20); Calcium 9.6 mg/dl (8.4-10.2); Carbon Dioxide 16 mmol/L (22-30); Chloride 109 mmol/L (98-107); Glucose 159 mg/dl (70-99); Magnesium 2.4 mg/dl (1.6-2.3); Potassium 4.7 mmol/L (3.5-5.1); Sodium 142 mmol/L (135-145); Total Bilirubin 0.3 mg/dl (0.2-1.3); Total Protein 7.8 g/dl (6.3-8.2); eGFR 35.66
== END ==
LOC: REG 06:20
PROVIDERS: ATTENDING PHYSICIAN Nurse Practitioner; FAMILY PHYSICIAN Family Medicine
DX: E11.22 Type 2 diabetes mellitus with diabetic chronic kidney disease (principal); I48.0 Paroxysmal atrial fibrillation; R55 Syncope and collapse
CPT/HCPCS: 36415; 80053; 80061; 83036; 83690; 83735; 84443; 85025

== ENCOUNTER → 2024-07-07 06:24 | Outpatient (REF) | payer OTHER, SELFPAY ==
[2024-07-07 07:34] LABS: Blood Urea Nitrogen 32 mg/dl (9-20); Calcium 9.1 mg/dl (8.4-10.2); Carbon Dioxide 17 mmol/L (22-30); Chloride 111 mmol/L (98-107); Glucose 201 mg/dl (70-99); Potassium 4.9 mmol/L (3.5-5.1); Sodium 143 mmol/L (135-145); eGFR 29.91
== END ==
LOC: REG 06:24
PROVIDERS: ATTENDING PHYSICIAN Nurse Practitioner; FAMILY PHYSICIAN Family Medicine
DX: I48.3 Typical atrial flutter (principal); R06.02 Shortness of breath; I10 Essential (primary) hypertension
CPT/HCPCS: 36415; 80048

== ENCOUNTER → 2024-07-14 06:55 | Day surgery (SDC) | payer OTHER, SELFPAY ==
[2024-07-14 07:59] LABS: Glucose - Point of Care 235 mg/dl (70-99)
[2024-07-14 08:05] VITALS: BMI 40.7
== END ==
LOC: CATH 06:55
PROVIDERS: ATTENDING PHYSICIAN Internal Medicine Cardiovascular Disease; FAMILY PHYSICIAN Family Medicine; OTHER PHYSICIAN Internal Medicine Cardiovascular Disease
DX: I48.91 Unspecified atrial fibrillation (principal); Z53.09 Procedure and treatment not carried out because of other contraindication; K21.9 Gastro-esophageal reflux disease without esophagitis; Z79.01 Long term (current) use of anticoagulants; I48.92 Unspecified atrial flutter; E11.9 Type 2 diabetes mellitus without complications; G47.30 Sleep apnea, unspecified; I25.2 Old myocardial infarction
CPT/HCPCS: 82962

== ENCOUNTER → 2024-08-11 07:18 | Day surgery (SDC) | payer OTHER, SELFPAY ==
[2024-08-11 09:06] LABS: Glucose - Point of Care 191 mg/dl (70-99)
--- NOTE | 2024-08-11 09:23 | ITS.CL.CARDI ---
Director Alumni Relations - Cardioversion
Cardioversion
Procedure Report:
Date of Procedure: 08/11/2024
Procedure: Cardioversion
Indication: Symptomatic atrial flutter
Performing Physician: Dev Orellana DO, FACC
Technique: The patient was brought to the holding area. Signed informed consent was obtained. A time out was called and performed. The patient was anesthetized by the anesthesia service. Anticoagulation status was reviewed and appropriate. R2 pads
were placed anteriorly and posteriorly. A 250 J synchronized biphasic shock restored normal sinus rhythm without significant bradycardia. There were no complications.
Conclusion: Uncomplicated cardioversion from atrial fibrillation to sinus rhythm.
Recommendation: Routine post cardioversion care. Continue termite inspector anticoagulation.
[2024-08-11] MEDS: VENTOLIN NEBULES 2.5 MG INH (09:26)
== END ==
LOC: CATH 07:18
PROVIDERS: ATTENDING PHYSICIAN Nuclear Medicine Nuclear Cardiology; FAMILY PHYSICIAN Family Medicine; OTHER PHYSICIAN Internal Medicine Cardiovascular Disease
DX: I48.92 Unspecified atrial flutter (principal); I48.0 Paroxysmal atrial fibrillation; I10 Essential (primary) hypertension; I25.10 Atherosclerotic heart disease of native coronary artery without angina pectoris; K21.9 Gastro-esophageal reflux disease without esophagitis; E11.9 Type 2 diabetes mellitus without complications; G47.33 Obstructive sleep apnea (adult) (pediatric); I25.2 Old myocardial infarction; Z87.891 Personal history of nicotine dependence; Z79.01 Long term (current) use of anticoagulants; Z79.82 Long term (current) use of aspirin
CPT/HCPCS: 82962; 92960; 93005; 94640

== ENCOUNTER → 2024-08-26 14:21 | Outpatient (REF) | payer OTHER, SELFPAY | LOC: RAD 14:21 | PROVIDERS: ATTENDING PHYSICIAN Urology; FAMILY PHYSICIAN Family Medicine | DX: C64.1 Malignant neoplasm of right kidney, except renal pelvis (principal); N28.89 Other specified disorders of kidney and ureter | CPT/HCPCS: 74150 ==

== ENCOUNTER → 2024-10-09 06:56 | Outpatient (REF) | payer OTHER, SELFPAY | LOC: RSP 06:56 | PROVIDERS: ATTENDING PHYSICIAN Family Medicine | DX: J84.9 Interstitial pulmonary disease, unspecified (principal) | CPT/HCPCS: 94727; 94729; 88738; 94010 ==

== ENCOUNTER → 2025-02-13 06:31 | Outpatient (REF) | payer OTHER, SELFPAY ==
[2025-02-13 07:40] LABS: Glycohemoglobin (HgbA1c) 6.9 % (4.0-5.6)
[2025-02-13 07:50] LABS: Blood Urea Nitrogen 37 mg/dl (9-20); Calcium 8.9 mg/dl (8.4-10.2); Carbon Dioxide 19 mmol/L (22-30); Chloride 113 mmol/L (98-107); Glucose 202 mg/dl (70-99); Potassium 4.7 mmol/L (3.5-5.1); Sodium 140 mmol/L (135-145); eGFR 24.32
== END ==
LOC: REG 06:31
PROVIDERS: ATTENDING PHYSICIAN Family Medicine
DX: E11.22 Type 2 diabetes mellitus with diabetic chronic kidney disease (principal); N18.32 Chronic kidney disease, stage 3b
CPT/HCPCS: 36415; 80048; 83036

== ENCOUNTER → 2025-04-23 14:28 | Outpatient (REF) | payer OTHER, SELFPAY | LOC: PAVMRI 14:28 | PROVIDERS: ATTENDING PHYSICIAN Urology; FAMILY PHYSICIAN Family Medicine | DX: N28.89 Other specified disorders of kidney and ureter (principal); C64.1 Malignant neoplasm of right kidney, except renal pelvis | CPT/HCPCS: 74183; A9575 ==

== ENCOUNTER → 2025-04-29 08:53 | Outpatient (REF) | payer OTHER, SELFPAY ==
[2025-04-29 10:38] LABS: Albumin 4.5 g/dl (3.5-5.0); Blood Urea Nitrogen 38 mg/dl (9-20); Calcium 9.3 mg/dl (8.4-10.2); Carbon Dioxide 19 mmol/L (22-30); Chloride 111 mmol/L (98-107); Glucose 127 mg/dl (70-99); Potassium 4.7 mmol/L (3.5-5.1); Sodium 140 mmol/L (135-145); eGFR 24.32
== END ==
LOC: REG 08:53
PROVIDERS: ATTENDING PHYSICIAN Internal Medicine
DX: N17.9 Acute kidney failure, unspecified (principal); N18.32 Chronic kidney disease, stage 3b
CPT/HCPCS: 36415; 80069; 82570; 83520; 83970; 84155; 84156; 84165; 84300; 86335

== ENCOUNTER → 2025-06-29 08:42 | Outpatient (REF) | payer OTHER, SELFPAY ==
[2025-06-29 10:56] LABS: Albumin 4.7 g/dl (3.5-5.0); Blood Urea Nitrogen 32 mg/dl (9-20); Calcium 9.8 mg/dl (8.4-10.2); Carbon Dioxide 17 mmol/L (22-30); Chloride 111 mmol/L (98-107); Glucose 159 mg/dl (70-99); Potassium 4.9 mmol/L (3.5-5.1); Sodium 139 mmol/L (135-145); eGFR 26.78
== END ==
LOC: REG 08:42
PROVIDERS: ATTENDING PHYSICIAN Internal Medicine; FAMILY PHYSICIAN Family Medicine
DX: N25.81 Secondary hyperparathyroidism of renal origin (principal)
CPT/HCPCS: 36415; 80069; 83970

== ENCOUNTER → 2025-07-13 08:54 | Outpatient (REF) | payer OTHER, SELFPAY ==
[2025-07-13 10:06] LABS: ALT (SGPT) 25 U/L (0-50); AST (SGOT) 26 U/L (17-59); Blood Urea Nitrogen 36 mg/dl (9-20); Calcium 9.3 mg/dl (8.4-10.2); Carbon Dioxide 21 mmol/L (22-30); Chloride 105 mmol/L (98-107); Glucose 167 mg/dl (70-99); Potassium 4.2 mmol/L (3.5-5.1); Sodium 139 mmol/L (135-145); eGFR 23.25
[2025-07-13 10:43] LABS: TSH 1.23 uIU/ml (0.47-4.68)
== END ==
LOC: REG 08:54
PROVIDERS: ATTENDING PHYSICIAN Nurse Practitioner; FAMILY PHYSICIAN Family Medicine
DX: I48.0 Paroxysmal atrial fibrillation (principal); R55 Syncope and collapse; I10 Essential (primary) hypertension; R06.02 Shortness of breath; R60.9 Edema, unspecified; N18.32 Chronic kidney disease, stage 3b
CPT/HCPCS: 36415; 71046; 80048; 84443; 84450; 84460